=== PATIENT | male | born 1965 | race Caucasian/White ===

== ENCOUNTER 2018-01-13 09:28 | Inpatient (IN) | payer OTHER ==
[2018-01-13 10:32] VITALS: BMI 30.4
--- NOTE | 2018-01-13 13:57 | HP ---
COWS - Scale Resting Pulse: 1= [place] 81-100 Sweatin=Flushed/Facial Moisture Restless Observation: 3= Extraneous Movement Pupil Size: 2= Moderately Dilated Bone or Joint Aches: 2= Severe Diffuse Aches Runny Nose/ Eye Tearin= Runny Nose/Eyes GI Upset > 30mins: 3= Vomiting/Diarrhea Tremor Observation: 2= Slight Tremor Visible Yawning Observation: 2= >3x During Session Anxiety or Irritability: 2=Irritable/Anxious Goose Flesh Skin: 0=Smooth Skin COWS Score: 21 CIWA Score - CIWA Score Nausea/Vomitin Muscle Tremors: 3 Anxiety: 3 Agitation: 3 Paroxysmal Sweats: 2 Orientation: 0-Oriented Tacttile Disturbances: 2-Mild Itch/Numbness/Burn Auditory Disturbances: 2-Mild Harshness/Frighten Visual Disturbances: 2-Mild Sensitivity Headache: 2-Mild CIWA-Ar Total Score: 22 Admission ROS BHS - HPI Chief Complaint: I NEED HELP TO STOP USING HEROIN,ALCOHOL AND COCAINE Allergies/Adverse Reactions: Allergies Allergy/AdvReac Type Severity Reaction Status Date / Time No Known Allergies Allergy Verified 01/13/18 10:48 History of Present Illness: THIS 52 YEARS OLD MALE WITH HEROIN,ALCOHOL AND COCAINE DEPENDENCE,SEEKING DETOX, LAST TREATMENT REHAB 08/20/17 TO 09/18/17 REHAB [facility] IN THE PAST ANXIETY,DEPRESSION,INSOMNIA, LONGEST PERIOD OF SOBRIETY 7 YEARS Exam Limitations: No Limitations - Ebola screening Have you traveled outside of the country in the last 21 days: No Have you had contact with anyone from an Ebola affected area: No Have you been sick,other than usual withdrawal symptoms: No Do you have a fever: No - Review of Systems Constitutional: Chills, Loss of Appetite, Malaise, Night Sweats, Changes in sleep, Weakness EENT: reports: Tearing, Nose Congestion Respiratory: reports: No Symptoms reported Cardiac: reports: No Symptoms Reported GI: reports: Diarrhea, Nausea, Vomiting, Abdominal cramping : reports: No Symptoms Reported Musculoskeletal: reports: Back Pain, Muscle Pain Integumentary: reports: Dryness Neuro: reports: Headache, Tremors Endocrine: reports: No Symptoms Reported Hematology: reports: No Symptoms Reported Psychiatric: reports: No Sypmtoms Reported, Judgement Intact, Mood/Affect Appropiate, Orientated x3, Anxious (INSOMNIA,ANXIETY,DEPRESSION), Depressed Patient History - Patient Medical History Hx Anemia: No Hx Asthma: No Hx Chronic Obstructive Pulmonary Disease (COPD): No Hx Cancer: No Hx Cardiac Disorders: No Hx Hypertension: No Hx Hypercholesterolemia: No Hx Pacemaker: No HX Cerebrovascular Accident: No Hx Seizures: No Hx Dementia: No Hx Diabetes: No Hx Gastrointestinal Disorders: No Hx Liver Disease: No Hx Genitourinary Disorders: No Hx Sexually Transmitted Disorders: No Hx Renal Disease (ESRD): No Hx Thyroid Disease: No Hx Human Immunodeficiency Virus (HIV): No (LAST HIV TEST NEGATIVE 04/27) Hx Hepatitis C: No Hx Depression: Yes (ANXIETY,INSOMNIA) Hx Suicide Attempt: No Hx Bipolar Disorder: No Hx Schizophrenia: No Other Medical History: NO SUICIDAL,NO HOMICIDAL - Patient Surgical History Past Surgical History: No Hx Neurologic Surgery: No Hx Cataract Extraction: No Hx Cardiac Surgery: No Hx Lung Surgery: No Hx Breast Surgery: No Hx Breast Biopsy: No Hx Abdominal Surgery: No Hx Appendectomy: No Hx Cholecystectomy: No Hx Genitourinary Surgery: No Hx Section: No Hx Orthopedic Surgery: No Anesthesia Reaction: No - PPD History Previous Implant?: Yes Documented Results: Negative w/proof Implanted On Prior [facility] Admission?: No Date: 08/22/17 Results: 0.0 PPD to be Administered?: No - Smoking Cessation Smoking history: Current every day smoker Have you smoked in the past 12 months: Yes Aproximately how many cigarettes per day: 20 Cigars Per Day: 0 Hx Chewing Tobacco Use: No Initiated information on smoking cessation: Yes 'Breaking Loose' booklet given: 01/13/18 - Substance & Tx. History Hx Alcohol Use: Yes Hx Substance Use: Yes Substance Use Type: Alcohol, Cocaine, Heroin - Substances Abused Heroin Route: Inhalation Frequency: Daily Amount used: 15-20 bags Age of first use: 27 Date of Last Use: 01/12/18 Alcohol Route: Oral Frequency: Daily Amount used: 12 to 14 beer 24oz, Vodka 1/2 ping Age of first use: 10 Date of Last Use: 01/13/18 Crack Route: Smoking Frequency: 1-3 times last 30 days Amount used: $ 150 Age of first use: 28 Date of Last Use: 01/12/18 Family Disease History - Family Disease History Family Disease History: [place]: Father (PROSTATE ) Admission Physical Exam [facility] - Vital Signs Vital Signs: Vital Signs - 24 hr 01/13/18 10:26 Temperature 97.6 F Pulse Rate 87 Respiratory 20 Rate Blood Pressure 145/95 - Physical General Appearance: Yes: Moderate Distress, Alcohol on Breath, Irritable HEENTM: Yes: Normal ENT Inspection, ELYSIA, Pharynx Normal Respiratory: Yes: Lungs Clear, Normal Breath Sounds, No Respiratory Distress Neck: Yes: Within Normal Limits, Supple, Trachea in good position Breast: Yes: Within Normal Limits Cardiology: Yes: Within Normal Limits, Regular Rhythm, Regular Rate, S1, S2 Abdominal: Yes: Normal Bowel Sounds, Non Tender, Flat, Soft, Organomegaly Genitourinary: Yes: Within Normal Limits Back: Yes: Within Normal Limits, Normal Inspection, Muscle Spasm Musculoskeletal: Yes: full range of Motion, Back pain, Muscle Pain Extremities: Yes: Within Normal Limits, Normal Capillary Refill, Normal Inspection, Normal Range of Motion Neurological: Yes: Within Normal Limits, grievance manager II-XII NML intact, Fully Oriented, Alert, Motor Strength 5/5 Integumentary: Yes: Dry Lymphatic: Yes: Within Normal Limits - Diagnostic (1) Opioid dependence with withdrawal Current Visit: No Status: Acute (2) Alcohol dependence with uncomplicated withdrawal Current Visit: No Status: Acute (3) Anxiety and depression Current Visit: No Status: Acute (4) Cocaine dependence Current Visit: No Status: Acute Qualifiers: Substance use status: uncomplicated Qualified Code(s): F14.20 - Cocaine dependence, uncomplicated (5) Nicotine dependence Current Visit: No Status: Acute (6) Insomnia Current Visit: Yes Status: Acute Cleared for Admission [facility] - Detox or Rehab [facility] Level of Care: Medically Managed Detox Regimen/Protocol: Methadone/Librium [facility] Breath Alcohol Content Breath Alcohol Content: 0.196 Urine Drug Screen - Results Drug Screen Negative: No Urine Drug Screen Results: COLT-Cocaine, OPI-Opiates, OXY-Oxycodone
[2018-01-13] MEDS ORDERED: NICOTINE POLACRILEX 2 MG GUM BC PRN (14:08)
[2018-01-13] MEDS ORDERED: guaiFENesin/D-METHORPHAN HB 10 ML UNIT-DOSE CUPS PO PRN (14:08)
[2018-01-13] MEDS ORDERED: IBUPROFEN 400 MG TABLET (FP) PO PRN (14:08)
[2018-01-13] MEDS ORDERED: chlordiazePOXIDE HCL 25 MG CAPSULE PO PRN (14:08)
[2018-01-13] MEDS ORDERED: MAG HYDROX/AL HYDROX/SIMETH 30 ML UNIT-DOSE CUP PO PRN (14:08)
[2018-01-13] MEDS ORDERED: LOPERAMIDE HCL 2 MG CAPSULE PO PRN (14:08)
[2018-01-13] MEDS ORDERED: MAGNESIUM CITRATE 300 ML BOTTLE PO PRN (14:08)
[2018-01-13] MEDS ORDERED: P-EPHED 60MG/TRIPROLIDI 2.5MG TABLET PO PRN (14:08)
[2018-01-13] MEDS ORDERED: chlordiazePOXIDE HCL 25 MG CAPSULE PO ONE (14:08)
[2018-01-13] MEDS ORDERED: MAGNESIUM HYDROX 2400MG/30ML ORAL SUSPENSION 30 ML CUP PO PRN (14:08)
[2018-01-13] MEDS ORDERED: ACETAMINOPHEN 325 MG TABLET (FP) PO PRN (14:08)
[2018-01-13] MEDS ORDERED: hydrOXYzine PAMOATE 50 MG CAPSULE (FP) PO PRN (14:08)
[2018-01-13] MEDS ORDERED: MENTHOL/PHENOL 1 EACH UD MM PRN (14:08)
[2018-01-13] MEDS ORDERED: METHADONE HCL 10 MG TABLET (FOR DETOX USE ONLY) PO ONE ×2 (16:30→23:00)
[2018-01-13] MEDS: chlordiazePOXIDE HCL 25 MG CAPSULE PO SCH ×2 (17:26→22:15)
[2018-01-13] MEDS: NICOTINE 21 MG/24 HOURS TOPICAL PATCH TD SCH (17:28)
[2018-01-13] MEDS: THIAMINE HCL 100 MG TABLET (FP) PO SCH (22:15)
[2018-01-13 22:46] LABS: URINE APPEARANCE SLCLOUDY; URINE BILIRUBIN NEGATIVE (NEGATIVE); URINE BLOOD NEGATIVE (NEGATIVE); URINE COLOR YELLOW; URINE GLUCOSE (UA) NEGATIVE (NEGATIVE); URINE KETONE NEGATIVE (NEGATIVE); URINE LEUK ESTERASE NEGATIVE (NEGATIVE); URINE NITRITE NEGATIVE (NEGATIVE); URINE PROTEIN NEGATIVE (NEGATIVE)
[2018-01-14] MEDS: chlordiazePOXIDE HCL 25 MG CAPSULE PO SCH ×4 (05:22→22:13)
--- NOTE | 2018-01-14 08:59 | PN ---
S CIWA - CIWA Score Nausea/Vomitin Muscle Tremors: 3 Anxiety: 3 Agitation: 2 Paroxysmal Sweats: 1-Minimal Palms Moist Orientation: 0-Oriented Tacttile Disturbances: 1-Very Mild Itch/Numbness Auditory Disturbances: 1-Very Mild Visual Disturbances: 0-None Headache: 2-Mild CIWA-Ar Total Score: 16 BHS COWS - Scale Resting Pulse: 0= [place] 80 or Below Sweatin= Chills/Flushing Restless Observation: 3= Extraneous Movement Pupil Size: 1= Pupils >than Normal Bone or Joint Aches: 2= Severe Diffuse Aches Runny Nose/ Eye Tearin= Nasal Congestion GI Upset > 30mins: 3= Vomiting/Diarrhea Tremor Observation of Outstretched Hands: 2= Slight Tremor Visible Yawning Observation: 1= 1-2x During Session Anxiety or Irritability: 2=Irritable/Anxious Goose Flesh Skin: 0=Smooth Skin COWS Score: 16 BHS Progress Note (SOAP) Subjective: ALERT,IRRITABLE,ANXIOUS,INTERRUPTED SLEEP,TREMOR,PAIN IN THE BODY AND BACK Objective: 01/14/18 08:57 Vital Signs Temperature 97.7 F 01/14/18 06:00 Pulse Rate 61 01/14/18 06:00 Respiratory Rate 18 01/14/18 06:00 Blood Pressure 144/77 01/14/18 06:00 O2 Sat by Pulse Oximetry (%) 01/14/18 08:57 EKG ;LOW VOLTAGE,SINUS RHYTHM NO CHEST PAIN,NO SOB,NO DIZZINESS Laboratory Last Values Urine Color Yellow 01/13/18 Unknown Urine Appearance Slcloudy 01/13/18 Unknown Urine pH 5.0 (5.0-8.0) 01/13/18 Unknown Ur Specific [place] 1.025 (1.001-1.035) 01/13/18 Unknown Urine Protein Negative (NEGATIVE) 01/13/18 Unknown Urine Glucose (UA) Negative (NEGATIVE) 01/13/18 Unknown Urine Ketones Negative (NEGATIVE) 01/13/18 Unknown Urine Blood Negative (NEGATIVE) 01/13/18 Unknown Urine Nitrite Negative (NEGATIVE) 01/13/18 Unknown Urine Bilirubin Negative (NEGATIVE) 01/13/18 Unknown Urine Urobilinogen 2.0 mg/dL (0.2-1.0) 01/13/18 Unknown Ur Leukocyte Esterase Negative (NEGATIVE) 01/13/18 Unknown LABS PENDING Assessment: 01/14/18 08:59 WITHDRAWAL SYMPTOM Plan: CONTINUE DETOX
[2018-01-14] MEDS ORDERED: METHADONE HCL 10 MG TABLET (FOR DETOX USE ONLY) PO SCH (10:00)
[2018-01-14 10:17] LABS: HEMATOCRIT 41.5 % (35.4-49); HEMOGLOBIN 13.9 GM/dL (11.7-16.9); MCH 32.1 pg (25.7-33.7); MCHC 33.5 g/dl (32.0-35.9); MEAN CELL VOLUME 95.7 fl (80-96); MEAN PLT VOLUME 9.7 fl (7.5-11.1); PLATELET COUNT 183 K/MM3 (134-434); RBC 4.33 M/mm3 (4.00-5.60); RDW 14.1 % (11.9-15.9); WHITE BLOOD COUNT 7.4 K/mm3 (4.0-10.0)
[2018-01-14 10:25] LABS: CHLORIDE 103 mmol/L (98-107); POTASSIUM 3.4 mmol/L (3.5-5.1); SODIUM 141 mmol/L (136-145)
[2018-01-14] MEDS: PRENATAL VITAMINS W/ FOLIC ACID TABLET (FP) PO SCH (10:27)
[2018-01-14] MEDS: VENLAFAXINE HCL 150 MG E.R. CAPSULE PO SCH (10:29)
[2018-01-14] MEDS: NICOTINE 21 MG/24 HOURS TOPICAL PATCH TD SCH (10:31)
[2018-01-14 10:39] LABS: ALK PHOS 86 U/L (45-117); ANION GAP 9 (8-16); BILIRUBIN,TOTAL 0.5 mg/dL (0.2-1.0); BLOOD UREA NITROGEN 10 mg/dL (7-18); CALCIUM 8.1 mg/dL (8.5-10.1); CO2 29 mmol/L (21-32); GLUCOSE,RANDOM 95 mg/dL (74-106); SGOT/AST 66 U/L (15-37); SGPT/ALT 43 U/L (12-78); TOT PROT 7.6 g/dl (6.4-8.2)
--- NOTE | 2018-01-14 11:08 | CONSULT ---
[facility] Psychiatric Consult - Data Date of interview: 01/14/18 Admission source: [facility] Identifying data: Pt. is a 52 year old single male, father of three, unemployed , and currently living in a [place] [facility]. This is one of multiple admissions for patient. Pt. admitted to for alcohol, cocaine and heroin dependence. Substance Abuse History: Following information confirmed with Mr. Fink : - Smoking Cessation. Smoking history: Current every day smoker. Have you smoked in the past 12 months: Yes. Aproximately how many cigarettes per day: 20. Cigars Per Day: 0. Hx Chewing Tobacco Use: No. Initiated information on smoking cessation: Yes. 'Breaking Loose' booklet given: 01/13/18. - Substance & Tx. History. Hx Alcohol Use: Yes. Hx Substance Use: Yes. Substance Use Type : Alcohol, Cocaine, Heroin. - Substances Abused. Heroin. Route: Inhalation. Frequency: Daily. Amount used: 15-20 bags. Age of first use: 27. Date of Last Use: 01/12/18. Alcohol. Route: Oral. Frequency: Daily. Amount used: 12 to 14 beer 24oz, Vodka 1/2 ping. Age of first use: 10. Date of Last Use: 01/13/18. Crack. Route: Smoking. Frequency: 1-3 times last 30 days. Amount used: $ 150. Age of first use: 28. Date of Last Use: 01/12/18 Medical History: Denies. Psychiatric History: Pt. denies h/o psychiatric hospitalizations. Reports h/o outpatient psychiatric care at [facility] two years ago. Currently, patient receives his effexor 150mg ER from his PCP. States he was diagnosed with anxiety, panic attacks, and depression. Pt. denies h/o suicide attempt. Pt. denies suicidal and homicidal ideation. Physical/Sexual Abuse/Trauma History: Denies. Mental Status Exam - Mental Status Exam Alert and Oriented to: Time, Place, Person Cognitive Function: Good Patient Appearance: Unkempt Mood: Withdrawn Affect: Mood Congruent Patient Behavior: Cooperative Speech Pattern: Delayed Voice Loudness: Normal Thought Process: Goal Oriented Thought Disorder: Not Present Hallucinations: Denies Suicidal Ideation: Denies Homicidal Ideation: Denies Insight/Judgement: Fair, Poor Sleep: Fair Appetite: Fair Muscle strength/Tone: Normal Gait/Station: Normal Psychiatric Findings - Problem List ([place] 1, 2,3) (1) Alcohol dependence with uncomplicated withdrawal Current Visit: Yes Status: Acute (2) Cocaine dependence Current Visit: Yes Status: Acute Qualifiers: Substance use status: uncomplicated Qualified Code(s): F14.20 - Cocaine dependence, uncomplicated (3) Opioid dependence Current Visit: Yes Status: Acute (4) Opioid dependence with withdrawal Current Visit: Yes Status: Acute (5) MDD (major depressive disorder) Current Visit: Yes Status: Chronic Comment: History. - Initial Treatment Plan Initial Treatment Plan: Psychoeducation provided. Detoxification in progress. Effexor 150mg ER PO daily ordered. Benefits and side effects discussed. Verbal consent given. Will continue to monitor patient.
--- NOTE | 2018-01-14 12:05 | EKG ---
Test Reason : Blood Pressure : / mmHG Vent. Rate : 073 BPM Atrial Rate : 073 BPM P-R Int : 134 ms QRS Dur : 078 ms QT Int : 396 ms P-R-T Axes : 015 013 053 degrees QTc Int : 436 ms SINUS RHYTHM WITH PREMATURE ATRIAL COMPLEXES NONSPECIFIC T WAVE ABNORMALITY ABNORMAL ECG WHEN COMPARED WITH ECG OF 20-AUG-2017 18:34, PREMATURE ATRIAL COMPLEXES ARE NOW PRESENT Confirmed by MD Baudilio, Gab ([id number]) on 01/14/2018 12:05:23 PM Referred By: Confirmed By:Gab Astudillo MD
[2018-01-14] MEDS: THIAMINE HCL 100 MG TABLET (FP) PO SCH (22:13)
[2018-01-15] MEDS: chlordiazePOXIDE HCL 25 MG CAPSULE PO SCH ×2 (05:44→10:11)
--- NOTE | 2018-01-15 09:16 | PN ---
S CIWA - CIWA Score Nausea/Vomitin Muscle Tremors: 3 Anxiety: 3 Agitation: 3 Paroxysmal Sweats: 1-Minimal Palms Moist Orientation: 0-Oriented Tacttile Disturbances: 1-Very Mild Itch/Numbness Auditory Disturbances: 1-Very Mild Visual Disturbances: 0-None Headache: 2-Mild CIWA-Ar Total Score: 17 BHS COWS - Scale Resting Pulse: 0= [place] 80 or Below Sweatin= Chills/Flushing Restless Observation: 3= Extraneous Movement Pupil Size: 1= Pupils >than Normal Bone or Joint Aches: 2= Severe Diffuse Aches Runny Nose/ Eye Tearin= Runny Nose/Eyes GI Upset > 30mins: 2= Nausea/Diarrhea Tremor Observation of Outstretched Hands: 2= Slight Tremor Visible Yawning Observation: 1= 1-2x During Session Anxiety or Irritability: 2=Irritable/Anxious Goose Flesh Skin: 0=Smooth Skin COWS Score: 16 S Progress Note (SOAP) Subjective: ALERT,IRRITABLE,ANXIOUS,INTERRUPTED SLEEP,TREMOR,PAIN IN THE BODY AND BACK Objective: 01/15/18 09:14 Vital Signs Temperature 98.1 F 01/15/18 06:18 Pulse Rate 58 L 01/15/18 06:18 Respiratory Rate 18 01/15/18 06:18 Blood Pressure 145/87 01/15/18 06:18 O2 Sat by Pulse Oximetry (%) Laboratory Last Values WBC 7.4 K/mm3 (4.0-10.0) 01/14/18 05:45 RBC 4.33 M/mm3 (4.00-5.60) 01/14/18 05:45 Hgb 13.9 GM/dL (11.7-16.9) 01/14/18 05:45 Hct 41.5 % (35.4-49) 01/14/18 05:45 MCV 95.7 fl (80-96) 01/14/18 05:45 MCH 32.1 pg (25.7-33.7) 01/14/18 05:45 MCHC 33.5 g/dl (32.0-35.9) 01/14/18 05:45 RDW 14.1 % (11.9-15.9) 01/14/18 05:45 Plt Count 183 K/MM3 (134-434) 01/14/18 05:45 MPV 9.7 fl (7.5-11.1) 01/14/18 05:45 Sodium 141 mmol/L (136-145) 01/14/18 05:45 Potassium 3.4 mmol/L (3.5-5.1) L 01/14/18 05:45 Chloride 103 mmol/L (98-107) 01/14/18 05:45 Carbon Dioxide 29 mmol/L (21-32) 01/14/18 05:45 Anion Gap 9 (8-16) 01/14/18 05:45 BUN 10 mg/dL (7-18) D 01/14/18 05:45 Creatinine 1.0 mg/dL (0.7-1.3) 01/14/18 05:45 Creat Clearance w eGFR > 60 (>60) 01/14/18 05:45 Random Glucose 95 mg/dL (74-106) 01/14/18 05:45 Calcium 8.1 mg/dL (8.5-10.1) L 01/14/18 05:45 Total Bilirubin 0.5 mg/dL (0.2-1.0) D 01/14/18 05:45 AST 66 U/L (15-37) H D 01/14/18 05:45 ALT 43 U/L (12-78) D 01/14/18 05:45 Alkaline Phosphatase 86 U/L (45-117) 01/14/18 05:45 Total Protein 7.6 g/dl (6.4-8.2) 01/14/18 05:45 Albumin 4.0 g/dl (3.4-5.0) 01/14/18 05:45 Urine Color Yellow 01/13/18 Unknown Urine Appearance Slcloudy 01/13/18 Unknown Urine pH 5.0 (5.0-8.0) 01/13/18 Unknown Ur Specific [place] 1.025 (1.001-1.035) 01/13/18 Unknown Urine Protein Negative (NEGATIVE) 01/13/18 Unknown Urine Glucose (UA) Negative (NEGATIVE) 01/13/18 Unknown Urine Ketones Negative (NEGATIVE) 01/13/18 Unknown Urine Blood Negative (NEGATIVE) 01/13/18 Unknown Urine Nitrite Negative (NEGATIVE) 01/13/18 Unknown Urine Bilirubin Negative (NEGATIVE) 01/13/18 Unknown Urine Urobilinogen 2.0 mg/dL (0.2-1.0) 01/13/18 Unknown Ur Leukocyte Esterase Negative (NEGATIVE) 01/13/18 Unknown RPR Titer Nonreactive (NONREACTIVE) 01/14/18 05:45 Assessment: 01/15/18 09:15 WITHDRAWAL SYMPTOM,K REPLACEMENT OF HYPOKALEMIA K IS 3.4 Plan: CONTINUE DETOX
[2018-01-15] MEDS: POTASSIUM CHLORIDE TABS 20 MEQ TABLET.ER (FP) PO SCH (10:11)
[2018-01-15] MEDS: VENLAFAXINE HCL 150 MG E.R. CAPSULE PO SCH (10:11)
[2018-01-15] MEDS: METHADONE HCL 5 MG TABLET (FOR DETOX USE ONLY) PO SCH (10:11)
[2018-01-15] MEDS: PRENATAL VITAMINS W/ FOLIC ACID TABLET (FP) PO SCH (10:11)
[2018-01-15] MEDS: NICOTINE 21 MG/24 HOURS TOPICAL PATCH TD SCH (10:12)
--- NOTE | 2018-01-15 10:22 | EKG ---
Test Reason : Blood Pressure : / mmHG Vent. Rate : 054 BPM Atrial Rate : 054 BPM P-R Int : 138 ms QRS Dur : 078 ms QT Int : 454 ms P-R-T Axes : 016 027 052 degrees QTc Int : 430 ms SINUS BRADYCARDIA NONSPECIFIC T WAVE ABNORMALITY ABNORMAL ECG WHEN COMPARED WITH ECG OF 13-JAN-2018 17:17, PREMATURE ATRIAL COMPLEXES ARE NO LONGER PRESENT Confirmed by EVELIA ACKERMAN, NATHAN ([id number]) on 01/15/2018 10:22:37 AM Referred By: Confirmed By:NATHAN ALTAMIRANO MD
[2018-01-15] MEDS: chlordiazePOXIDE 5 MG CAPSULE PO SCH ×2 (17:38→22:13)
[2018-01-15] MEDS ORDERED: cloNIDine HCL 0.1 MG TABLET PO ONE (18:00)
[2018-01-15] MEDS: THIAMINE HCL 100 MG TABLET (FP) PO SCH (22:14)
[2018-01-16] MEDS: chlordiazePOXIDE 5 MG CAPSULE PO SCH ×2 (05:33→10:05)
[2018-01-16] MEDS: PRENATAL VITAMINS W/ FOLIC ACID TABLET (FP) PO SCH (10:04)
[2018-01-16] MEDS: VENLAFAXINE HCL 150 MG E.R. CAPSULE PO SCH (10:05)
[2018-01-16] MEDS: POTASSIUM CHLORIDE TABS 20 MEQ TABLET.ER (FP) PO SCH (10:05)
[2018-01-16] MEDS: METHADONE HCL 5 MG TABLET (FOR DETOX USE ONLY) PO SCH (10:05)
[2018-01-16] MEDS: NICOTINE 21 MG/24 HOURS TOPICAL PATCH TD SCH (10:05)
--- NOTE | 2018-01-16 11:04 | PN ---
BHS Progress Note (SOAP) Subjective: ALERT,IRRITABLE,ANXIOUS,INTERRUPTED SLEEP,PAIN IN THE BODY Objective: 01/16/18 11:03 Vital Signs Temperature 97.5 F L 01/16/18 06:22 Pulse Rate 52 L 01/16/18 06:22 Respiratory Rate 18 01/16/18 06:22 Blood Pressure 141/96 01/16/18 06:22 O2 Sat by Pulse Oximetry (%) Assessment: 01/16/18 11:03 WITHDRAWAL SYMPTOM Plan: CONTINUE DETOX
[2018-01-16] MEDS: chlordiazePOXIDE HCL 10 MG CAPSULE PO SCH ×2 (17:19→22:45)
[2018-01-16] MEDS: THIAMINE HCL 100 MG TABLET (FP) PO SCH (22:45)
[2018-01-17] MEDS: chlordiazePOXIDE HCL 10 MG CAPSULE PO SCH ×2 (05:59→10:51)
[2018-01-17] MEDS ORDERED: METHADONE HCL 10 MG TABLET (FOR DETOX USE ONLY) PO SCH (10:00)
--- NOTE | 2018-01-17 10:24 | PN ---
S Progress Note (SOAP) Subjective: ALERT,IRRITABLE,INTERRUPTED SLEEP Objective: 01/17/18 10:23 Vital Signs Temperature 97.3 F L 01/17/18 09:36 Pulse Rate 55 L 01/17/18 09:36 Respiratory Rate 20 01/17/18 09:36 Blood Pressure 151/88 01/17/18 09:36 O2 Sat by Pulse Oximetry (%) Assessment: 01/17/18 10:23 WITHDRAWAL SYMPTOM Plan: CONTINUE DETOX,DISCHARGE IN AM
[2018-01-17] MEDS: PRENATAL VITAMINS W/ FOLIC ACID TABLET (FP) PO SCH (10:51)
[2018-01-17] MEDS: VENLAFAXINE HCL 150 MG E.R. CAPSULE PO SCH (10:51)
[2018-01-17] MEDS: POTASSIUM CHLORIDE TABS 20 MEQ TABLET.ER (FP) PO SCH (10:51)
[2018-01-17] MEDS: NICOTINE 21 MG/24 HOURS TOPICAL PATCH TD SCH (10:51)
[2018-01-17] MEDS: THIAMINE HCL 100 MG TABLET (FP) PO SCH (22:12)
[2018-01-18] MEDS ORDERED: METHADONE HCL 5 MG TABLET (FOR DETOX USE ONLY) PO SCH (06:00)
[2018-01-18] MEDS: PRENATAL VITAMINS W/ FOLIC ACID TABLET (FP) PO SCH (10:38)
[2018-01-18] MEDS: NICOTINE 21 MG/24 HOURS TOPICAL PATCH TD SCH (10:38)
[2018-01-18] MEDS: POTASSIUM CHLORIDE TABS 20 MEQ TABLET.ER (FP) PO SCH (10:38)
[2018-01-18] MEDS: VENLAFAXINE HCL 150 MG E.R. CAPSULE PO SCH (10:38)
[2018-01-18 11:20] VITALS: BP 119/73; PULSE 60; TEMP 97.7
--- NOTE | 2018-01-18 14:52 | DS ---
[facility] Detox Discharge Summary Admission Date: 01/13/18 Discharge Date: 01/18/18 - History Pertinent Past History: hypokalemia Anxiety depression - Physical Exam Results Vital Signs: Vital Signs Temperature 97.7 F 01/18/18 10:00 Pulse Rate 60 01/18/18 10:00 Respiratory Rate 18 01/18/18 10:00 Blood Pressure 119/73 01/18/18 10:00 O2 Sat by Pulse Oximetry (%) Pertinent Admission Physical Exam Findings: withdrawal sx - Treatment Hospital Course: Detox Protocol Followed, Detoxed Safely, Responded well, Discharged Condition Good Patient has Accepted a Rehab Referral to: O/P aftercare as per counselor's note - Medication Discharge Medications: Ambulatory Orders Venlafaxine HCl ER [Effexor Xr -] 150 mg PO DAILY #30 mg 09/17/17 - Diagnosis (1) Opioid dependence, uncomplicated Status: Acute (2) Alcohol dependence with uncomplicated withdrawal Status: Acute (3) Cocaine dependence Status: Acute Qualifiers: Substance use status: uncomplicated Qualified Code(s): F14.20 - Cocaine dependence, uncomplicated (4) Nicotine dependence Status: Acute (5) Opioid dependence with withdrawal Status: Acute - AMA Did Patient Leave Against Medical Advice: No
== END 2018-01-18 12:15 | disposition home or self-care (01) | DRG 773 ==
LOC: YASAS 09:28 → Y6N 15:46
PROVIDERS: ADMIT Internal Medicine; ATTEND Internal Medicine
PROC: HZ2ZZZZ Detoxification Services for Substance Abuse Treatment (ICD-10-PCS; principal; 2018-01-13)
DX: F11.23 Opioid dependence with withdrawal (principal); F10.230 Alcohol dependence with withdrawal, uncomplicated; F14.20 Cocaine dependence, uncomplicated; F17.210 Nicotine dependence, cigarettes, uncomplicated; F41.8 Other specified anxiety disorders; F33.9 Major depressive disorder, recurrent, unspecified; G47.00 Insomnia, unspecified; E87.6 Hypokalemia
CPT/HCPCS: 36415; 80053; 81003; 85027; 86593; 93005; 93010; J0735

== ENCOUNTER 2018-04-12 12:28 | Inpatient (IN) | payer OTHER ==
[2018-04-12 16:07] VITALS: BMI 29.2
--- NOTE | 2018-04-12 16:22 | HP ---
COWS - Scale Resting Pulse: 0= [place] 80 or Below Sweatin= Chills/Flushing Restless Observation: 1= Difficult to Sit Still Pupil Size: 0= Normal to Room Light Bone or Joint Aches: 1= Mild Discomfort Runny Nose/ Eye Tearin= Runny Nose/Eyes GI Upset > 30mins: 2= Nausea/Diarrhea Tremor Observation: 2= Slight Tremor Visible Yawning Observation: 1= 1-2x During Session Anxiety or Irritability: 2=Irritable/Anxious Goose Flesh Skin: 0=Smooth Skin COWS Score: 12 CIWA Score - CIWA Score Nausea/Vomitin Muscle Tremors: 2 Anxiety: 3 Agitation: 3 Paroxysmal Sweats: 2 Orientation: 0-Oriented Tacttile Disturbances: 1-Very Mild Itch/Numbness Auditory Disturbances: 0-None Visual Disturbances: 0-None Headache: 0-None Present CIWA-Ar Total Score: 13 Admission ROS [facility] - HPI Allergies/Adverse Reactions: Allergies Allergy/AdvReac Type Severity Reaction Status Date / Time No Known Allergies Allergy Verified 01/13/18 10:48 History of Present Illness: 52 yo male with of heroin, nicotine, alcohol dependence and occasional crack / cocaine use, with last episode yesterday. Hx of depression, anxiety with panic attacks. Denies suicidal / homicidal ideation or suicide attempts. Utox positive for benzos, denies any recent ED, hospitalizations or inpatient detox. Reports tried xanax about a week ago once, but does not use xanax on the regular basis. Last detox at [facility] 01/13/18 -01/18/18. Longest period of sobriety 7 years. Exam Limitations: No Limitations - Ebola screening Have you traveled outside of the country in the last 21 days: No (N) Have you had contact with anyone from an Ebola affected area: No Have you been sick,other than usual withdrawal symptoms: No Do you have a fever: No - Review of Systems Constitutional: Chills, Loss of Appetite, Weakness EENT: reports: Nose Congestion Respiratory: reports: No Symptoms reported Cardiac: reports: No Symptoms Reported GI: reports: Constipated (last BM yesterday), Nausea, Poor Appetite, Poor Fluid Intake : reports: No Symptoms Reported Musculoskeletal: reports: Joint Pain Integumentary: reports: No Symptoms Reported Neuro: reports: Weakness Endocrine: reports: Increased Thirst Hematology: reports: No Symptoms Reported Psychiatric: reports: Orientated x3, Depressed Other Systems: Reviewed and Negative Patient History - Patient Medical History Hx Anemia: No Hx Asthma: No Hx Chronic Obstructive Pulmonary Disease (COPD): No Hx Cancer: No Hx Cardiac Disorders: No Hx Congestive Heart Failure: No Hx Hypertension: No Hx Hypercholesterolemia: No Hx Pacemaker: No HX Cerebrovascular Accident: No Hx Seizures: No Hx Dementia: No Hx Diabetes: No Hx Gastrointestinal Disorders: No Hx Liver Disease: No Hx Genitourinary Disorders: No Hx Sexually Transmitted Disorders: No Hx Renal Disease (ESRD): No Hx Thyroid Disease: No Hx Human Immunodeficiency Virus (HIV): No (LAST HIV TEST NEGATIVE 04/27, declines testing today ) Hx Hepatitis C: No Hx Depression: Yes (ANXIETY,INSOMNIA) Hx Suicide Attempt: No Hx Bipolar Disorder: No Hx Schizophrenia: No - Patient Surgical History Past Surgical History: No Hx Neurologic Surgery: No Hx Cataract Extraction: No Hx Cardiac Surgery: No Hx Lung Surgery: No Hx Breast Surgery: No Hx Breast Biopsy: No Hx Abdominal Surgery: No Hx Appendectomy: No Hx Cholecystectomy: No Hx Genitourinary Surgery: No Hx Section: No Hx Orthopedic Surgery: No Anesthesia Reaction: No - PPD History Previous Implant?: Yes Documented Results: Negative w/proof Date: 08/22/17 Results: 0.0 PPD to be Administered?: No - Smoking Cessation Smoking history: Current every day smoker Have you smoked in the past 12 months: Yes Aproximately how many cigarettes per day: 20 Cigars Per Day: 0 Hx Chewing Tobacco Use: No Initiated information on smoking cessation: Yes 'Breaking Loose' booklet given: 04/12/18 - Substance & Tx. History Hx Alcohol Use: Yes Hx Substance Use: Yes Substance Use Type: Alcohol, Cocaine, Opiates Hx Substance Use Treatment: Yes ([facility] 01/13/18 -01/18/18) - Substances Abused Alcohol Frequency: Daily Amount used: 10 -12 x 24 oz beer Age of first use: 10 Date of Last Use: 04/12/18 Crack Route: Smoking Frequency: 1-3 times last 30 days Amount used: $20 Age of first use: 19 Date of Last Use: 04/11/18 Heroin Route: Inhalation Frequency: Daily Amount used: 10 bags Age of first use: 27 Date of Last Use: 06/01/18 Family Disease History - Family Disease History Family Disease History: [place]: Father (PROSTATE ) Admission Physical Exam [facility] - Vital Signs Vital Signs: Vital Signs - 24 hr 04/12/18 16:03 Temperature 96 F L Pulse Rate 53 L Respiratory 20 Rate Blood Pressure 139/82 - Physical General Appearance: Yes: Disheveled, Irritable, Sweating, Anxious HEENTM: Yes: EOMI, Hearing grossly Normal, Normal ENT Inspection, Normocephalic , Normal Voice, ELYSIA, Pharynx Normal, Tm's normal Respiratory: Yes: Chest Non-Tender, Lungs Clear, Normal Breath Sounds, No Respiratory Distress, No Accessory Muscle Use Neck: Yes: Within Normal Limits Breast: Yes: Breast Exam Deferred Cardiology: Yes: Regular Rhythm, Regular Rate Abdominal: Yes: Normal Bowel Sounds, Non Tender, Flat, Soft Genitourinary: Yes: Within Normal Limits Back: Yes: Normal Inspection Musculoskeletal: Yes: full range of Motion, Gait Steady, Pelvis Stable Extremities: Yes: Normal Capillary Refill, Normal Inspection, Normal Range of Motion, Non-Tender Neurological: Yes: confectionery cooker II-XII NML intact, Fully Oriented, Alert, Motor Strength 5/5, Depressed Affect Integumentary: Yes: Normal Color, Warm, Diaphoresis Lymphatic: Yes: Within Normal Limits - Diagnostic (1) Alcohol dependence with uncomplicated withdrawal Current Visit: Yes Status: Acute (2) Anxiety and depression Current Visit: Yes Status: Acute (3) Cocaine dependence Current Visit: Yes Status: Acute Qualifiers: Substance use status: uncomplicated Qualified Code(s): F14.20 - Cocaine dependence, uncomplicated (4) Nicotine dependence Current Visit: Yes Status: Acute (5) Opioid dependence with withdrawal Current Visit: Yes Status: Acute Cleared for Admission [facility] - Detox or Rehab [facility] Level of Care: Medically Managed Detox Regimen/Protocol: Methadone/Librium [facility] Breath Alcohol Content Breath Alcohol Content: 0.083 Urine Drug Screen - Results Drug Screen Negative: No Urine Drug Screen Results: COLT-Cocaine, OPI-Opiates, BZO-Benzodiazepines
[2018-04-12] MEDS ORDERED: LOPERAMIDE HCL 2 MG CAPSULE PO PRN (16:31)
[2018-04-12] MEDS ORDERED: MAGNESIUM CITRATE 300 ML BOTTLE PO PRN (16:31)
[2018-04-12] MEDS ORDERED: MAG HYDROX/AL HYDROX/SIMETH 30 ML UNIT-DOSE CUP PO PRN (16:31)
[2018-04-12] MEDS ORDERED: guaiFENesin/D-METHORPHAN HB 10 ML UNIT-DOSE CUPS PO PRN (16:31)
[2018-04-12] MEDS ORDERED: ACETAMINOPHEN 325 MG TABLET (FP) PO PRN (16:31)
[2018-04-12] MEDS ORDERED: MAGNESIUM HYDROX 2400MG/30ML ORAL SUSPENSION 30 ML CUP PO PRN (16:31)
[2018-04-12] MEDS ORDERED: P-EPHED 60MG/TRIPROLIDI 2.5MG TABLET PO PRN (16:31)
[2018-04-12] MEDS ORDERED: MENTHOL/PHENOL 1 EACH UD MM PRN (16:31)
[2018-04-12] MEDS ORDERED: NICOTINE POLACRILEX 2 MG GUM BC PRN (16:31)
[2018-04-12] MEDS ORDERED: IBUPROFEN 400 MG TABLET (FP) PO PRN (16:31)
[2018-04-12] MEDS ORDERED: diazePAM 5 MG TABLET PO PRN (16:31)
[2018-04-12] MEDS ORDERED: hydrOXYzine PAMOATE 50 MG CAPSULE (FP) PO PRN (16:31)
[2018-04-12] MEDS ORDERED: METHADONE HCL 10 MG TABLET (FOR DETOX USE ONLY) PO ONE ×3 (16:45→23:00)
[2018-04-12] MEDS ORDERED: diazePAM 5 MG TABLET PO ONE ×2 (16:45→20:45)
[2018-04-12] MEDS ORDERED: chlordiazePOXIDE HCL 25 MG CAPSULE PO PRN (21:10)
[2018-04-12] MEDS ORDERED: diazePAM 5 MG TABLET PO SCH (22:00)
[2018-04-12] MEDS: THIAMINE HCL 100 MG TABLET (FP) PO SCH (22:39)
[2018-04-12] MEDS: chlordiazePOXIDE HCL 25 MG CAPSULE PO SCH (22:40)
[2018-04-13] MEDS: chlordiazePOXIDE HCL 25 MG CAPSULE PO SCH ×4 (05:53→22:33)
[2018-04-13] MEDS ORDERED: METHADONE HCL 10 MG TABLET (FOR DETOX USE ONLY) PO SCH (10:00)
[2018-04-13] MEDS: PRENATAL VITAMINS W/ FOLIC ACID TABLET (FP) PO SCH (10:39)
[2018-04-13] MEDS: NICOTINE 21 MG/24 HOURS TOPICAL PATCH TD SCH (10:41)
[2018-04-13] MEDS ORDERED: ONDANSETRON *ODT* 4 MG TABLET SL ONE (11:00)
[2018-04-13 11:02] LABS: HEMATOCRIT 40.9 % (35.4-49); HEMOGLOBIN 14.3 GM/dL (11.7-16.9); MCH 32.7 pg (25.7-33.7); MCHC 34.9 g/dl (32.0-35.9); MEAN CELL VOLUME 93.5 fl (80-96); MEAN PLT VOLUME 9.7 fl (7.5-11.1); PLATELET COUNT 159 K/MM3 (134-434); RBC 4.37 M/mm3 (4.00-5.60); RDW 15.1 % (11.9-15.9)
[2018-04-13 11:05] LABS: URINE APPEARANCE CLEAR; URINE BILIRUBIN NEGATIVE (<2.0 mg/dL); URINE BLOOD NEGATIVE (NEGATIVE); URINE COLOR LTYELLOW; URINE GLUCOSE (UA) NEGATIVE (NEGATIVE); URINE KETONE NEGATIVE (NEGATIVE); URINE LEUK ESTERASE NEGATIVE (NEGATIVE); URINE NITRITE NEGATIVE (NEGATIVE); URINE PROTEIN NEGATIVE (NEGATIVE)
[2018-04-13 11:29] LABS: ALBUMIN 3.5 g/dl (3.4-5.0); ANION GAP 7 (8-16); BLOOD UREA NITROGEN 14 mg/dL (7-18); CALCIUM 8.4 mg/dL (8.5-10.1); CHLORIDE 101 mmol/L (98-107); CO2 32 mmol/L (21-32); GLUCOSE,RANDOM 111 mg/dL (74-106); POTASSIUM 3.7 mmol/L (3.5-5.1); SGOT/AST 58 U/L (15-37); SGPT/ALT 55 U/L (12-78); SODIUM 140 mmol/L (136-145)
[2018-04-13 11:31] LABS: ALK PHOS 93 U/L (45-117); CREATININE 0.9 mg/dL (0.7-1.3); TOT PROT 6.9 g/dl (6.4-8.2)
--- NOTE | 2018-04-13 12:29 | CONSULT ---
[facility] Psychiatric Consult - Data Date of interview: 04/13/18 Admission source: Self-referred Identifying data: Mr Fink is a 52 years old male, father of 3 children, unemployed on SSI, homeless seeking detox treatment for alcohol, opioid and cocaine Substance Abuse History: Reports history of alcohol, heroin and cocaine use. Refer to addiction counselor's summary for futher information Medical History: Unremarkable. Smokes cigarettes 1ppd Psychiatric History: Reports first psychiatric contact in 1992 when he was admitted for 2 weeks to [facility] in [place] due to panic attacks and depression. He was treated with Imipramine and later switched to Paxil. He reports two subsequent psychiatric hospitalizations with most recent one being in 2010 in a [place] hospital. Reports currently seeing a psychiatrist at [facility](prison) and he is prescribed Effexor XR 150 mg po daily. At present, reports feeling mildly depressed and sleeping poorly Physical/Sexual Abuse/Trauma History: Denies history of physical abuse by family members as a child. Denies sexual abuse or DV relationship Additional Comment: Reports history of 3-4 previous arrests including 3 felony convictions. Denies being on parole/probation currently Mental Status Exam - Mental Status Exam Alert and Oriented to: Time, Place, Person Cognitive Function: Fair Patient Appearance: Well Groomed Mood: Depressed Affect: Appropriate Patient Behavior: Cooperative Speech Pattern: Clear Voice Loudness: Normal Thought Process: Intact, Goal Oriented Hallucinations: Denies Suicidal Ideation: Denies Homicidal Ideation: Denies Insight/Judgement: Poor Sleep: Well Appetite: Good Muscle strength/Tone: Normal Gait/Station: Normal Psychiatric Findings - Problem List ([place] 1, 2,3) (1) MDD (major depressive disorder) Current Visit: No Status: Chronic Comment: History. (2) Substance induced mood disorder Current Visit: Yes Status: Acute (3) Alcohol dependence with uncomplicated withdrawal Current Visit: Yes Status: Acute (4) Opioid dependence with withdrawal Current Visit: Yes Status: Acute (5) Cocaine dependence Current Visit: Yes Status: Acute Qualifiers: Substance use status: uncomplicated Qualified Code(s): F14.20 - Cocaine dependence, uncomplicated (6) Nicotine dependence Current Visit: Yes Status: Chronic Qualifiers: Nicotine product type: cigarettes - Initial Treatment Plan Initial Treatment Plan: 1) Continue Effexor XR 150 mg po daily. 2) Continue inpatient detoxification
--- NOTE | 2018-04-13 12:52 | PN ---
[facility] CIWA - CIWA Score Nausea/Vomitin-Mild Nausea/No Vomiting Muscle Tremors: 3 Anxiety: 2 Agitation: 2 Paroxysmal Sweats: 1-Minimal Palms Moist Orientation: 0-Oriented Tacttile Disturbances: 1-Very Mild Itch/Numbness Auditory Disturbances: 0-None Visual Disturbances: 0-None Headache: 1-Very Mild CIWA-Ar Total Score: 11 S COWS - Scale Resting Pulse: 0= [place] 80 or Below Sweatin= Chills/Flushing Restless Observation: 1= Difficult to Sit Still Pupil Size: 0= Normal to Room Light Bone or Joint Aches: 1= Mild Discomfort Runny Nose/ Eye Tearin= Nasal Congestion GI Upset > 30mins: 2= Nausea/Diarrhea Tremor Observation of Outstretched Hands: 1= Tremor [place], Not Seen Yawning Observation: 2= >3x During Session Anxiety or Irritability: 2=Irritable/Anxious Goose Flesh Skin: 0=Smooth Skin COWS Score: 11 [facility] Progress Note (SOAP) Subjective: joint pain body ache sweat tremor irritable restlessness Objective: 04/13/18 12:52 Vital Signs Temperature 98.1 F 04/13/18 09:14 Pulse Rate 49 L 04/13/18 09:14 Respiratory Rate 18 04/13/18 09:14 Blood Pressure 125/74 04/13/18 09:14 O2 Sat by Pulse Oximetry (%) Laboratory Last Values WBC 6.0 K/mm3 (4.0-10.0) 04/13/18 07:40 RBC 4.37 M/mm3 (4.00-5.60) 04/13/18 07:40 Hgb 14.3 GM/dL (11.7-16.9) 04/13/18 07:40 Hct 40.9 % (35.4-49) 04/13/18 07:40 MCV 93.5 fl (80-96) 04/13/18 07:40 MCH 32.7 pg (25.7-33.7) 04/13/18 07:40 MCHC 34.9 g/dl (32.0-35.9) 04/13/18 07:40 RDW 15.1 % (11.9-15.9) 04/13/18 07:40 Plt Count 159 K/MM3 (134-434) 04/13/18 07:40 MPV 9.7 fl (7.5-11.1) 04/13/18 07:40 Sodium 140 mmol/L (136-145) 04/13/18 07:40 Potassium 3.7 mmol/L (3.5-5.1) 04/13/18 07:40 Chloride 101 mmol/L (98-107) 04/13/18 07:40 Carbon Dioxide 32 mmol/L (21-32) 04/13/18 07:40 Anion Gap 7 (8-16) L 04/13/18 07:40 BUN 14 mg/dL (7-18) D 04/13/18 07:40 Creatinine 0.9 mg/dL (0.7-1.3) 04/13/18 07:40 Creat Clearance w eGFR > 60 (>60) 04/13/18 07:40 Random Glucose 111 mg/dL (74-106) H 04/13/18 07:40 Calcium 8.4 mg/dL (8.5-10.1) L 04/13/18 07:40 Total Bilirubin 1.0 mg/dL (0.2-1.0) D 04/13/18 07:40 AST 58 U/L (15-37) H 04/13/18 07:40 ALT 55 U/L (12-78) D 04/13/18 07:40 Alkaline Phosphatase 93 U/L (45-117) 04/13/18 07:40 Total Protein 6.9 g/dl (6.4-8.2) 04/13/18 07:40 Albumin 3.5 g/dl (3.4-5.0) 04/13/18 07:40 Urine Color Ltyellow 04/13/18 08:15 Urine Appearance Clear 04/13/18 08:15 Urine pH 6.0 (5.0-8.0) 04/13/18 08:15 Ur Specific [place] 1.010 (1.001-1.035) 04/13/18 08:15 Urine Protein Negative (NEGATIVE) 04/13/18 08:15 Urine Glucose (UA) Negative (NEGATIVE) 04/13/18 08:15 Urine Ketones Negative (NEGATIVE) 04/13/18 08:15 Urine Blood Negative (NEGATIVE) 04/13/18 08:15 Urine Nitrite Negative (NEGATIVE) 04/13/18 08:15 Urine Bilirubin Negative (<2.0 mg/dL) 04/13/18 08:15 Urine Urobilinogen 2.0 mg/dL (0.2-1.0) 04/13/18 08:15 Ur Leukocyte Esterase Negative (NEGATIVE) 04/13/18 08:15 RPR Titer Nonreactive (NONREACTIVE) 04/13/18 07:40 lab noted Assessment: 04/13/18 12:52 withdrawal sx Plan: continue detox
[2018-04-13] MEDS: VENLAFAXINE HCL 150 MG E.R. CAPSULE PO SCH (13:00)
[2018-04-13] MEDS: THIAMINE HCL 100 MG TABLET (FP) PO SCH (22:33)
[2018-04-13] MEDS: MELATONIN 5 MG TABLETS PO PRN (22:34)
--- NOTE | 2018-04-13 22:41 | EKG ---
Test Reason : Blood Pressure : / mmHG Vent. Rate : 048 BPM Atrial Rate : 048 BPM P-R Int : 140 ms QRS Dur : 084 ms QT Int : 498 ms P-R-T Axes : 021 012 -11 degrees QTc Int : 444 ms SINUS BRADYCARDIA OTHERWISE NORMAL ECG WHEN COMPARED WITH ECG OF 14-JAN-2018 11:29, NONSPECIFIC T WAVE ABNORMALITY NOW EVIDENT IN INFERIOR LEADS Confirmed by ALEX OROZCO MD ([id number]) on 04/13/2018 10:41:41 PM Referred By: Confirmed By:ALEX OROZCO MD
[2018-04-14] MEDS: chlordiazePOXIDE HCL 25 MG CAPSULE PO SCH ×3 (06:49→17:30)
[2018-04-14] MEDS ORDERED: diazePAM 5 MG TABLET PO SCH (10:00)
[2018-04-14] MEDS: NICOTINE 21 MG/24 HOURS TOPICAL PATCH TD SCH (10:32)
[2018-04-14] MEDS: VENLAFAXINE HCL 150 MG E.R. CAPSULE PO SCH (10:32)
[2018-04-14] MEDS: METHADONE HCL 5 MG TABLET (FOR DETOX USE ONLY) PO SCH (10:32)
[2018-04-14] MEDS: PRENATAL VITAMINS W/ FOLIC ACID TABLET (FP) PO SCH (10:32)
--- NOTE | 2018-04-14 12:22 | PN ---
[facility] CIWA - CIWA Score Nausea/Vomitin Muscle Tremors: 3 Anxiety: 3 Agitation: 2 Paroxysmal Sweats: 1-Minimal Palms Moist Orientation: 0-Oriented Tacttile Disturbances: 1-Very Mild Itch/Numbness Auditory Disturbances: 1-Very Mild Visual Disturbances: 0-None Headache: 2-Mild CIWA-Ar Total Score: 16 [facility] COWS - Scale Resting Pulse: 0= [place] 80 or Below Sweatin= Chills/Flushing Restless Observation: 3= Extraneous Movement Pupil Size: 1= Pupils >than Normal Bone or Joint Aches: 2= Severe Diffuse Aches Runny Nose/ Eye Tearin= Runny Nose/Eyes GI Upset > 30mins: 2= Nausea/Diarrhea Tremor Observation of Outstretched Hands: 2= Slight Tremor Visible Yawning Observation: 1= 1-2x During Session Anxiety or Irritability: 2=Irritable/Anxious Goose Flesh Skin: 0=Smooth Skin COWS Score: 16 [facility] Progress Note (SOAP) Subjective: alert,irritable,anxious,interrupted sleep,tremor,pain in the body Objective: 04/14/18 12:20 Vital Signs Temperature 97.5 F L 04/14/18 09:48 Pulse Rate 55 L 04/14/18 09:48 Respiratory Rate 20 04/14/18 09:48 Blood Pressure 130/70 04/14/18 09:48 O2 Sat by Pulse Oximetry (%) Laboratory Last Values WBC 6.0 K/mm3 (4.0-10.0) 04/13/18 07:40 RBC 4.37 M/mm3 (4.00-5.60) 04/13/18 07:40 Hgb 14.3 GM/dL (11.7-16.9) 04/13/18 07:40 Hct 40.9 % (35.4-49) 04/13/18 07:40 MCV 93.5 fl (80-96) 04/13/18 07:40 MCH 32.7 pg (25.7-33.7) 04/13/18 07:40 MCHC 34.9 g/dl (32.0-35.9) 04/13/18 07:40 RDW 15.1 % (11.9-15.9) 04/13/18 07:40 Plt Count 159 K/MM3 (134-434) 04/13/18 07:40 MPV 9.7 fl (7.5-11.1) 04/13/18 07:40 Sodium 140 mmol/L (136-145) 04/13/18 07:40 Potassium 3.7 mmol/L (3.5-5.1) 04/13/18 07:40 Chloride 101 mmol/L (98-107) 04/13/18 07:40 Carbon Dioxide 32 mmol/L (21-32) 04/13/18 07:40 Anion Gap 7 (8-16) L 04/13/18 07:40 BUN 14 mg/dL (7-18) D 04/13/18 07:40 Creatinine 0.9 mg/dL (0.7-1.3) 04/13/18 07:40 Creat Clearance w eGFR > 60 (>60) 04/13/18 07:40 Random Glucose 111 mg/dL (74-106) H 04/13/18 07:40 Calcium 8.4 mg/dL (8.5-10.1) L 04/13/18 07:40 Total Bilirubin 1.0 mg/dL (0.2-1.0) D 04/13/18 07:40 AST 58 U/L (15-37) H 04/13/18 07:40 ALT 55 U/L (12-78) D 04/13/18 07:40 Alkaline Phosphatase 93 U/L (45-117) 04/13/18 07:40 Total Protein 6.9 g/dl (6.4-8.2) 04/13/18 07:40 Albumin 3.5 g/dl (3.4-5.0) 04/13/18 07:40 Urine Color Ltyellow 04/13/18 08:15 Urine Appearance Clear 04/13/18 08:15 Urine pH 6.0 (5.0-8.0) 04/13/18 08:15 Ur Specific [place] 1.010 (1.001-1.035) 04/13/18 08:15 Urine Protein Negative (NEGATIVE) 04/13/18 08:15 Urine Glucose (UA) Negative (NEGATIVE) 04/13/18 08:15 Urine Ketones Negative (NEGATIVE) 04/13/18 08:15 Urine Blood Negative (NEGATIVE) 04/13/18 08:15 Urine Nitrite Negative (NEGATIVE) 04/13/18 08:15 Urine Bilirubin Negative (<2.0 mg/dL) 04/13/18 08:15 Urine Urobilinogen 2.0 mg/dL (0.2-1.0) 04/13/18 08:15 Ur Leukocyte Esterase Negative (NEGATIVE) 04/13/18 08:15 RPR Titer Nonreactive (NONREACTIVE) 04/13/18 07:40 Assessment: 04/14/18 12:21 withdrawal symptom Plan: continue detox
[2018-04-14] MEDS: chlordiazePOXIDE 5 MG CAPSULE PO SCH (22:20)
[2018-04-14] MEDS: THIAMINE HCL 100 MG TABLET (FP) PO SCH (22:21)
[2018-04-14] MEDS: MELATONIN 5 MG TABLETS PO PRN (22:21)
[2018-04-15] MEDS: chlordiazePOXIDE 5 MG CAPSULE PO SCH ×3 (05:26→17:28)
[2018-04-15] MEDS: VENLAFAXINE HCL 150 MG E.R. CAPSULE PO SCH (10:51)
[2018-04-15] MEDS: PRENATAL VITAMINS W/ FOLIC ACID TABLET (FP) PO SCH (10:51)
[2018-04-15] MEDS: NICOTINE 21 MG/24 HOURS TOPICAL PATCH TD SCH (10:51)
[2018-04-15] MEDS: METHADONE HCL 5 MG TABLET (FOR DETOX USE ONLY) PO SCH (10:51)
--- NOTE | 2018-04-15 11:57 | PN ---
[facility] Progress Note (SOAP) Subjective: alert,irritable,anxious,interrupted sleep,pain in the body Objective: 04/15/18 11:55 Vital Signs Temperature 97.7 F 04/15/18 09:24 Pulse Rate 50 L 04/15/18 09:24 Respiratory Rate 18 04/15/18 09:24 Blood Pressure 122/74 04/15/18 09:24 O2 Sat by Pulse Oximetry (%) Assessment: 04/15/18 11:55 withdrawal symptom Plan: continue detox
[2018-04-15] MEDS: chlordiazePOXIDE HCL 10 MG CAPSULE PO SCH (22:17)
[2018-04-15] MEDS: THIAMINE HCL 100 MG TABLET (FP) PO SCH (22:17)
[2018-04-15] MEDS: MELATONIN 5 MG TABLETS PO PRN (22:18)
[2018-04-16] MEDS: chlordiazePOXIDE HCL 10 MG CAPSULE PO SCH ×3 (05:28→18:10)
[2018-04-16] MEDS ORDERED: METHADONE HCL 10 MG TABLET (FOR DETOX USE ONLY) PO SCH (10:00)
[2018-04-16] MEDS ORDERED: diazePAM 5 MG TABLET PO SCH (10:00)
[2018-04-16] MEDS: PRENATAL VITAMINS W/ FOLIC ACID TABLET (FP) PO SCH (10:17)
[2018-04-16] MEDS: VENLAFAXINE HCL 150 MG E.R. CAPSULE PO SCH (10:17)
[2018-04-16] MEDS: NICOTINE 21 MG/24 HOURS TOPICAL PATCH TD SCH (10:38)
--- NOTE | 2018-04-16 12:21 | PN ---
S Progress Note (SOAP) Subjective: alert,interrupted sleep Objective: 04/16/18 12:20 Vital Signs Temperature 97.2 F L 04/16/18 09:42 Pulse Rate 51 L 04/16/18 09:42 Respiratory Rate 18 04/16/18 09:42 Blood Pressure 135/71 04/16/18 09:42 O2 Sat by Pulse Oximetry (%) Assessment: 04/16/18 12:21 withdrawal symptom Plan: continue detox,discharge in am
[2018-04-16] MEDS: THIAMINE HCL 100 MG TABLET (FP) PO SCH (23:00)
[2018-04-16] MEDS: MELATONIN 5 MG TABLETS PO PRN (23:00)
[2018-04-17] MEDS ORDERED: METHADONE HCL 5 MG TABLET (FOR DETOX USE ONLY) PO SCH (06:00)
[2018-04-17 07:24] VITALS: TEMP 97.3
--- NOTE | 2018-04-17 08:17 | PN ---
S Progress Note (SOAP) Subjective: alert,no complaint Objective: 04/17/18 08:16 Vital Signs Temperature 97.3 F L 04/17/18 07:22 Pulse Rate 50 L 04/17/18 07:22 Respiratory Rate 18 04/17/18 07:22 Blood Pressure 121/74 04/17/18 07:22 O2 Sat by Pulse Oximetry (%) Assessment: 04/17/18 08:16 detox completed,no withdrawal symptom Plan: discharge today,follow up with after care program as arrangement
--- NOTE | 2018-04-17 08:21 | DS ---
[facility] Detox Discharge Summary Admission Date: 04/12/18 Discharge Date: 04/17/18 - History Present History: Alcohol Dependence, Opioid Dependence Additional Comments: follow up with after care program as arrangement Pertinent Past History: nicotine dependence depression - Physical Exam Results Vital Signs: Vital Signs Temperature 97.3 F L 04/17/18 07:22 Pulse Rate 50 L 04/17/18 07:22 Respiratory Rate 18 04/17/18 07:22 Blood Pressure 121/74 04/17/18 07:22 O2 Sat by Pulse Oximetry (%) Pertinent Admission Physical Exam Findings: withdrawal signs and symptom Vital Signs Temperature 97.3 F L 04/17/18 07:22 Pulse Rate 50 L 04/17/18 07:22 Respiratory Rate 18 04/17/18 07:22 Blood Pressure 121/74 04/17/18 07:22 O2 Sat by Pulse Oximetry (%) Laboratory Last Values WBC 6.0 K/mm3 (4.0-10.0) 04/13/18 07:40 RBC 4.37 M/mm3 (4.00-5.60) 04/13/18 07:40 Hgb 14.3 GM/dL (11.7-16.9) 04/13/18 07:40 Hct 40.9 % (35.4-49) 04/13/18 07:40 MCV 93.5 fl (80-96) 04/13/18 07:40 MCH 32.7 pg (25.7-33.7) 04/13/18 07:40 MCHC 34.9 g/dl (32.0-35.9) 04/13/18 07:40 RDW 15.1 % (11.9-15.9) 04/13/18 07:40 Plt Count 159 K/MM3 (134-434) 04/13/18 07:40 MPV 9.7 fl (7.5-11.1) 04/13/18 07:40 Sodium 140 mmol/L (136-145) 04/13/18 07:40 Potassium 3.7 mmol/L (3.5-5.1) 04/13/18 07:40 Chloride 101 mmol/L (98-107) 04/13/18 07:40 Carbon Dioxide 32 mmol/L (21-32) 04/13/18 07:40 Anion Gap 7 (8-16) L 04/13/18 07:40 BUN 14 mg/dL (7-18) D 04/13/18 07:40 Creatinine 0.9 mg/dL (0.7-1.3) 04/13/18 07:40 Creat Clearance w eGFR > 60 (>60) 04/13/18 07:40 Random Glucose 111 mg/dL (74-106) H 04/13/18 07:40 Calcium 8.4 mg/dL (8.5-10.1) L 04/13/18 07:40 Total Bilirubin 1.0 mg/dL (0.2-1.0) D 04/13/18 07:40 AST 58 U/L (15-37) H 04/13/18 07:40 ALT 55 U/L (12-78) D 04/13/18 07:40 Alkaline Phosphatase 93 U/L (45-117) 04/13/18 07:40 Total Protein 6.9 g/dl (6.4-8.2) 04/13/18 07:40 Albumin 3.5 g/dl (3.4-5.0) 04/13/18 07:40 Urine Color Ltyellow 04/13/18 08:15 Urine Appearance Clear 04/13/18 08:15 Urine pH 6.0 (5.0-8.0) 04/13/18 08:15 Ur Specific [place] 1.010 (1.001-1.035) 04/13/18 08:15 Urine Protein Negative (NEGATIVE) 04/13/18 08:15 Urine Glucose (UA) Negative (NEGATIVE) 04/13/18 08:15 Urine Ketones Negative (NEGATIVE) 04/13/18 08:15 Urine Blood Negative (NEGATIVE) 04/13/18 08:15 Urine Nitrite Negative (NEGATIVE) 04/13/18 08:15 Urine Bilirubin Negative (<2.0 mg/dL) 04/13/18 08:15 Urine Urobilinogen 2.0 mg/dL (0.2-1.0) 04/13/18 08:15 Ur Leukocyte Esterase Negative (NEGATIVE) 04/13/18 08:15 RPR Titer Nonreactive (NONREACTIVE) 04/13/18 07:40 - Treatment Hospital Course: Detox Protocol Followed, Detoxed Safely, Responded well, Discharged Condition Good, Rehab Referral Accepted Patient has Accepted [facility] Ref[facility] - Medication Discharge Medications: Ambulatory Orders Venlafaxine HCl ER [Effexor Xr -] 150 mg PO DAILY #30 mg 09/17/17 - Diagnosis (1) Opioid dependence with withdrawal Current Visit: Yes Status: Acute (2) Alcohol dependence with uncomplicated withdrawal Current Visit: Yes Status: Acute (3) Substance induced mood disorder Current Visit: Yes Status: Acute (4) Nicotine dependence Current Visit: Yes Status: Chronic Qualifiers: Nicotine product type: cigarettes (5) MDD (major depressive disorder), recurrent episode Current Visit: No Status: Acute - AMA Did Patient Leave Against Medical Advice: No
[2018-04-17 09:20] VITALS: BP 112/68; PULSE 49
[2018-04-17] MEDS: PRENATAL VITAMINS W/ FOLIC ACID TABLET (FP) PO SCH (10:23)
[2018-04-17] MEDS: VENLAFAXINE HCL 150 MG E.R. CAPSULE PO SCH (10:23)
[2018-04-17] MEDS: NICOTINE 21 MG/24 HOURS TOPICAL PATCH TD SCH (10:23)
== END 2018-04-17 10:30 | disposition home or self-care (01) | DRG 773 ==
LOC: YASAS 12:28 → Y6N 19:20
PROVIDERS: ADMIT Surgery; ATTEND Surgery
PROC: HZ2ZZZZ Detoxification Services for Substance Abuse Treatment (ICD-10-PCS; principal; 2018-04-12)
DX: F11.23 Opioid dependence with withdrawal (principal); F10.230 Alcohol dependence with withdrawal, uncomplicated; F14.20 Cocaine dependence, uncomplicated; F17.210 Nicotine dependence, cigarettes, uncomplicated; F19.24 Other psychoactive substance dependence with psychoactive substance-induced mood disorder; F33.9 Major depressive disorder, recurrent, unspecified
CPT/HCPCS: 36415; 80053; 81003; 85027; 86593; 93005; 93010

== ENCOUNTER 2018-07-28 15:12 | Inpatient (IN) | payer OTHER ==
--- NOTE | 2018-07-28 21:59 | HP ---
COWS - Scale Resting Pulse: 0= [place] 80 or Below Sweatin=Flushed/Facial Moisture Restless Observation: 1= Difficult to Sit Still Pupil Size: 0= Normal to Room Light Bone or Joint Aches: 4=Acute Joint/Muscle Pain Runny Nose/ Eye Tearin= Nasal Congestion GI Upset > 30mins: 3= Vomiting/Diarrhea Tremor Observation: 2= Slight Tremor Visible Yawning Observation: 0= None Anxiety or Irritability: 2=Irritable/Anxious Goose Flesh Skin: 0=Smooth Skin COWS Score: 15 CIWA Score - CIWA Score Nausea/Vomitin-No Nausea/No Vomiting Muscle Tremors: 4-Moderate,w/Arms Extend Anxiety: 4-Mod. Anxious/Guarded Agitation: 4-Moderately Restless Paroxysmal Sweats: 3 Orientation: 0-Oriented Tacttile Disturbances: 3-Moderate Itch/Numb/Burn Auditory Disturbances: 0-None Visual Disturbances: 0-None Headache: 0-None Present CIWA-Ar Total Score: 18 Admission ROS S - HPI Chief Complaint: SEEKING DETOX FROM ALCOHOL AND HEROIN DEPENDENCE WITH C/O WITHDRAWAL SX'S Allergies/Adverse Reactions: Allergies Allergy/AdvReac Type Severity Reaction Status Date / Time No Known Allergies Allergy Verified 07/28/18 21:23 History of Present Illness: 52 Y.O. MALE WITH HX/O ALCOHOLISM/ OPIOID DEPENDENCE WITH C/O WITHDRAWAL SXS' CIWA-18/ COWS-15 ADMITTED TO DETOX. CLIENT IS KNOWN TO THIS PROGRAM. SELF REFERRED. LAST ADMISSION 04/12/2018. REPORTS LONGEST CLEAN TIME 7 YEARS. DENIES SEIZURES, DENIES PAST/PRESENT SI/HI,AVH . DOES REPORTS HX/O BLACK OUTS. DENIES LEGALS PMHX- DENIES PSYCH- DEPRESSION, ANXIETY, PANIC D/O Exam Limitations: No Limitations - Ebola screening Have you traveled outside of the country in the last 21 days: No Have you had contact with anyone from an Ebola affected area: No Have you been sick,other than usual withdrawal symptoms: No - Review of Systems Constitutional: Chills, Loss of Appetite, Malaise, Night Sweats, Changes in sleep EENT: reports: Dental Problems (MISSING TEETH), Other (ITCHY R EYE) Respiratory: reports: No Symptoms reported Cardiac: reports: No Symptoms Reported GI: reports: Diarrhea, Nausea, Poor Appetite, Poor Fluid Intake : reports: No Symptoms Reported Musculoskeletal: reports: Joint Pain Integumentary: reports: Flushing, Sweating Neuro: reports: Numbness, Tingling (FINGERS) Endocrine: reports: No Symptoms Reported Hematology: reports: No Symptoms Reported Psychiatric: reports: Anxious, Depressed Other Systems: Reviewed and Negative Patient History - Patient Medical History Hx Anemia: No Hx Asthma: No Hx Chronic Obstructive Pulmonary Disease (COPD): No Hx Cancer: No Hx Cardiac Disorders: No Hx Congestive Heart Failure: No Hx Hypertension: No Hx Hypercholesterolemia: No Hx Pacemaker: No HX Cerebrovascular Accident: No Hx Seizures: No Hx Dementia: No Hx Diabetes: No Hx Gastrointestinal Disorders: No Hx Liver Disease: No Hx Genitourinary Disorders: No Hx Sexually Transmitted Disorders: No Hx Renal Disease (ESRD): No Hx Thyroid Disease: No Hx Human Immunodeficiency Virus (HIV): No Hx Hepatitis C: No Hx Depression: Yes Hx Suicide Attempt: No Hx Bipolar Disorder: No Hx Schizophrenia: No Other Medical History: ANXIETY/PANIC D/O - Patient Surgical History Past Surgical History: No Hx Neurologic Surgery: No Hx Cataract Extraction: No Hx Cardiac Surgery: No Hx Lung Surgery: No Hx Breast Surgery: No Hx Breast Biopsy: No Hx Abdominal Surgery: No Hx Appendectomy: No Hx Cholecystectomy: No Hx Genitourinary Surgery: No Hx Section: No Hx Orthopedic Surgery: No Anesthesia Reaction: No - PPD History Previous Implant?: Yes Documented Results: Negative w/proof Implanted On Prior [facility] Admission?: Yes Date: 08/22/17 Results: 0 mm PPD to be Administered?: No - Smoking Cessation Smoking history: Current every day smoker Have you smoked in the past 12 months: Yes Aproximately how many cigarettes per day: 20 Cigars Per Day: 0 Hx Chewing Tobacco Use: No Initiated information on smoking cessation: Yes 'Breaking Loose' booklet given: 07/28/18 - Substance & Tx. History Hx Alcohol Use: Yes Hx Substance Use: Yes Substance Use Type: Alcohol, Heroin Hx Substance Use Treatment: Yes ([facility]) - Substances Abused Alcohol Route: Oral Frequency: Daily Amount used: liquor- 2 pints Age of first use: 10 Date of Last Use: 07/27/18 Heroin Route: Inhalation Frequency: Daily Amount used: 9 bags Age of first use: 10 Date of Last Use: 07/28/18 Family Disease History - Family Disease History Family Disease History: [place]: Father (PROSTATE ) Admission Physical Exam [facility] - Vital Signs Vital Signs: Vital Signs - 24 hr 07/28/18 18:11 Temperature 97 F L Pulse Rate 78 Respiratory 18 Rate Blood Pressure 158/93 - Physical General Appearance: Yes: Moderate Distress, Alcohol on Breath, Intoxicated, Tremorous, Sweating, Anxious, Other (MALODUROUS) HEENTM: Yes: EOMI, Normocephalic, Normal Voice, ELYSIA, Pharynx Normal Respiratory: Yes: Chest Non-Tender, Lungs Clear, Normal Breath Sounds, No Respiratory Distress, No Accessory Muscle Use Neck: Yes: No masses,lesions,Nodules, Supple, Trachea in good position Breast: Yes: Breast Exam Deferred Cardiology: Yes: Regular Rhythm, Regular Rate, S1, S2 Abdominal: Yes: Non Tender, Soft, Increased Bowel Sounds Genitourinary: Yes: Other (NO C/O) Back: Yes: Normal Inspection Musculoskeletal: Yes: Gait Steady Extremities: Yes: Normal Capillary Refill, Normal Range of Motion, Non-Tender, Tremors (FELT) Neurological: Yes: Alert, Motor Strength 5/5, Depressed Affect Integumentary: Yes: Warm, Other (FLUSHED) Lymphatic: Yes: Within Normal Limits - Diagnostic (1) Alcohol dependence with uncomplicated withdrawal Current Visit: Yes Status: Acute (2) Cocaine dependence Current Visit: Yes Status: Acute Qualifiers: Substance use status: uncomplicated Qualified Code(s): F14.20 - Cocaine dependence, uncomplicated (3) Opioid dependence with withdrawal Current Visit: Yes Status: Acute (4) Panic disorder with agoraphobia Current Visit: Yes Status: Chronic (5) Substance induced mood disorder Current Visit: Yes Status: Suspected (6) MDD (major depressive disorder) Current Visit: Yes Status: Chronic Comment: History. (7) Nicotine dependence Current Visit: Yes Status: Chronic Qualifiers: Nicotine product type: cigarettes Substance use status: uncomplicated Qualified Code(s): F17.210 - Nicotine dependence, cigarettes, uncomplicated (8) At risk for dehydration due to poor fluid intake Current Visit: Yes Status: Acute Cleared for Admission [facility] - Detox or Rehab [facility] Level of Care: Medically Managed Detox Regimen/Protocol: Methadone/Librium Claeared for Rehab Admission: No S Breath Alcohol Content Breath Alcohol Content: 0.180 Urine Drug Screen - Results Drug Screen Negative: No Urine Drug Screen Results: COLT-Cocaine, OPI-Opiates
[2018-07-28] MEDS ORDERED: MELATONIN 5 MG TABLETS PO PRN (22:00)
[2018-07-28] MEDS ORDERED: LOPERAMIDE HCL 2 MG CAPSULE PO PRN (22:03)
[2018-07-28] MEDS ORDERED: MAGNESIUM HYDROX 2400MG/30ML ORAL SUSPENSION 30 ML CUP PO PRN (22:03)
[2018-07-28] MEDS ORDERED: guaiFENesin/D-METHORPHAN HB 10 ML UNIT-DOSE CUPS PO PRN (22:03)
[2018-07-28] MEDS ORDERED: ACETAMINOPHEN 325 MG TABLET (FP) PO PRN (22:03)
[2018-07-28] MEDS ORDERED: IBUPROFEN 400 MG TABLET (FP) PO PRN (22:03)
[2018-07-28] MEDS ORDERED: MENTHOL/PHENOL 1 EACH UD MM PRN (22:03)
[2018-07-28] MEDS ORDERED: MAGNESIUM CITRATE 300 ML BOTTLE PO PRN (22:03)
[2018-07-28] MEDS ORDERED: P-EPHED 60MG/TRIPROLIDI 2.5MG TABLET PO PRN (22:03)
[2018-07-28] MEDS ORDERED: NICOTINE POLACRILEX 2 MG GUM BC PRN (22:03)
[2018-07-29] MEDS ORDERED: METHADONE HCL 10 MG TABLET (FOR DETOX USE ONLY) PO ONE ×3 (01:14→22:00)
[2018-07-29] MEDS: chlordiazePOXIDE HCL 25 MG CAPSULE PO PRN ×2 (01:25→15:12)
[2018-07-29] MEDS: chlordiazePOXIDE HCL 25 MG CAPSULE PO SCH ×4 (05:36→22:06)
[2018-07-29 10:25] LABS: HEMATOCRIT 41.6 % (35.4-49); MCH 32.3 pg (25.7-33.7); MCHC 33.8 g/dl (32.0-35.9); MEAN CELL VOLUME 95.8 fl (80-96); MEAN PLT VOLUME 9.8 fl (7.5-11.1); PLATELET COUNT 157 K/MM3 (134-434); RBC 4.34 M/mm3 (4.00-5.60); RDW 13.8 % (11.9-15.9); WHITE BLOOD COUNT 4.5 K/mm3 (4.0-10.0)
[2018-07-29 10:44] LABS: ALBUMIN 3.6 g/dl (3.4-5.0); ANION GAP 13 MMOL/L (8-16); BILIRUBIN,TOTAL 0.9 mg/dL (0.2-1); BLOOD UREA NITROGEN 15 mg/dL (7-18); CALCIUM 8.7 mg/dL (8.5-10.1); CHLORIDE 102 mmol/L (98-107); CO2 30 mmol/L (21-32); GLUCOSE,RANDOM 111 mg/dL (74-106); SGOT/AST 40 U/L (15-37); SGPT/ALT 28 U/L (13-61); SODIUM 145 mmol/L (136-145); TOT PROT 6.8 g/dl (6.4-8.2)
[2018-07-29 10:47] LABS: ALK PHOS 83 U/L (45-117)
[2018-07-29] MEDS: PRENATAL VITAMINS W/ FOLIC ACID TABLET (FP) PO SCH (10:47)
[2018-07-29] MEDS: NICOTINE 21 MG/24 HOURS TOPICAL PATCH TD SCH (10:48)
--- NOTE | 2018-07-29 11:04 | PN ---
S CIWA - CIWA Score Nausea/Vomitin-Mild Nausea/No Vomiting Muscle Tremors: None Anxiety: 1-Mildly Anxious Agitation: 0-Normal Activity Paroxysmal Sweats: No Perspiration Orientation: 0-Oriented Tacttile Disturbances: 0-None Auditory Disturbances: 0-None Visual Disturbances: 0-None Headache: 1-Very Mild CIWA-Ar Total Score: 3 [facility] COWS - Scale Resting Pulse: 0= [place] 80 or Below Sweatin= No chills or Flushing Restless Observation: 0= Sits Still Pupil Size: 0= Normal to Room Light Bone or Joint Aches: 1= Mild Discomfort Runny Nose/ Eye Tearin= None GI Upset > 30mins: 1= Stomach Cramp Tremor Observation of Outstretched Hands: 0= None Yawning Observation: 0= None Anxiety or Irritability: 1=Feels Anxious/Irritable Goose Flesh Skin: 0=Smooth Skin COWS Score: 3 S Progress Note (SOAP) Subjective: PATIENT PRESENTS WITH MILD ANXIETY, STOMACH CRAMPS, HEADACHE AND BODY ACHES. Objective: 07/29/18 11:02 Vital Signs Temperature 97.2 F L 07/29/18 09:29 Pulse Rate 67 07/29/18 09:29 Respiratory Rate 18 07/29/18 09:29 Blood Pressure 113/70 07/29/18 09:29 O2 Sat by Pulse Oximetry (%) Laboratory Tests 07/29/18 07/29/18 07:50 07:50 WBC 4.5 RBC 4.34 Hgb 14.0 Hct 41.6 MCV 95.8 MCH 32.3 MCHC 33.8 RDW 13.8 Plt Count 157 MPV 9.8 Sodium 145 Potassium 4.0 Chloride 102 Carbon Dioxide 30 Anion Gap 13 BUN 15 Creatinine 1.0 Creat Clearance w eGFR > 60 Random Glucose 111 H Calcium 8.7 Total Bilirubin 0.9 AST 40 H ALT 28 Alkaline Phosphatase 83 Total Protein 6.8 Albumin 3.6 SKIN AFEBRILE, WARM AND DRY ALERT AND ORIENTED CAR S1S2 RESP CTA BL GI SOFT, BS + NT Assessment: 07/29/18 11:03 WITHDRAWAL SYNDROME Plan: ENCOURAGE ORAL FLUIDS MOTRIN/APAP PRN FOR HEADACHE CONTINUE DETOX PER PROTOCOL
--- NOTE | 2018-07-29 16:45 | EKG ---
Test Reason : Blood Pressure : / mmHG Vent. Rate : 071 BPM Atrial Rate : 071 BPM P-R Int : 136 ms QRS Dur : 080 ms QT Int : 404 ms P-R-T Axes : 009 023 030 degrees QTc Int : 439 ms NORMAL SINUS RHYTHM NONSPECIFIC T WAVE ABNORMALITY ABNORMAL ECG WHEN COMPARED WITH ECG OF 12-APR-2018 19:44, VENT. RATE HAS INCREASED BY 23 BPM NONSPECIFIC T WAVE ABNORMALITY, WORSE IN LATERAL LEADS Confirmed by Sandro Coronel ([id number]) on 07/29/2018 4:45:01 PM Referred By: Confirmed By:Sandro Coronel
--- NOTE | 2018-07-29 17:59 | CONSULT ---
[facility] Psychiatric Consult - Data Date of interview: 07/29/18 Admission source: [facility] Identifying data: Readmission to [facility] for this 52 y/o male self- referred for detoxification treatment (alcohol,heroin,cocaine dependence) .Admitted to [address] [place] [address].Patient is ,a father of three,homeless,unemployed and supported on SSI benefits. Substance Abuse History: Confirmed by the patient in this interview.Details in current [facility] report : Smoking history: Current every day smoker. Have you smoked in the past 12 months: Yes. Aproximately how many cigarettes per day: 20. Cigars Per Day: 0. Hx Chewing Tobacco Use: No. Initiated information on smoking cessation: Yes. 'Breaking Loose' booklet given: 07/28/18. - Substance & Tx. History. Hx Alcohol Use: Yes. Hx Substance Use: Yes. Substance Use Type : Alcohol, Heroin. Hx Substance Use Treatment: Yes ([facility]). - Substances Abused. Alcohol. Route: Oral. Frequency: Daily. Amount used: liquor- 2 pints. Age of first use: 10. Date of Last Use: 07/27/18. Heroin. Route: Inhalation. Frequency: Daily. Amount used: 9 bags. Age of first use: 10. Date of Last Use: 07/28/18 Medical History: Patient endorses good general health. Psychiatric History: First contact with Psychiatry occurred in 1992 (admission to [facility] in [place] to address panic attacks + major depressive episode).Treated with imipramine at the time.Two more psychiatric hospitalizations followed ([facility] + [facility] facility in [place]).Last hospitalized in 2010.Mr Carranza sees a psychiatrist at his detention for medication management.Currently on venlafaxine ER 150 mg/ day.Patient denies history of suicide attempts. Physical/Sexual Abuse/Trauma History: Patient denies. Additional Comment: Urine Drug Screen Results: COLT-Cocaine, OPI-Opiates.Noted. Mental Status Exam - Mental Status Exam Alert and Oriented to: Time, Place, Person Cognitive Function: Good Patient Appearance: Unkempt, Disheveled Mood: Nervous, Withdrawn, Anxious Affect: Mood Congruent, Constricted Patient Behavior: Fatigued, Appropriate, Cooperative Speech Pattern: Clear, Appropriate Voice Loudness: Normal Thought Process: Intact, Goal Oriented Thought Disorder: Not Present Hallucinations: Denies Suicidal Ideation: Denies Homicidal Ideation: Denies Insight/Judgement: Poor Sleep: Poorly, Difficulty falling asleep Appetite: Good Muscle strength/Tone: Normal Gait/Station: Normal Psychiatric Findings - Problem List ([place] 1, 2,3) (1) Opioid dependence with withdrawal Current Visit: Yes Status: Acute (2) Alcohol dependence with uncomplicated withdrawal Current Visit: Yes Status: Acute (3) Cocaine dependence Current Visit: Yes Status: Acute Qualifiers: Substance use status: uncomplicated Qualified Code(s): F14.20 - Cocaine dependence, uncomplicated (4) Nicotine dependence Current Visit: Yes Status: Acute Qualifiers: Nicotine product type: cigarettes Substance use status: uncomplicated Qualified Code(s): F17.210 - Nicotine dependence, cigarettes, uncomplicated (5) Substance induced mood disorder Current Visit: Yes Status: Acute (6) MDD (major depressive disorder) Current Visit: Yes Status: Chronic Comment: As per records and self- report.On medication. (7) Insomnia Current Visit: Yes Status: Acute - Initial Treatment Plan Initial Treatment Plan: Psychoeducation.Sleep hygiene.Detoxification in progress.Effexor XR 150 mg po daily + ambien 5 mg po hs prn..Ordered.Side effects/benefits of both drugs are discussed with the patient.Consent (verbal) : given.Observation.
[2018-07-29 20:07] LABS: URINE APPEARANCE CLOUDY; URINE BILIRUBIN NEGATIVE (<2.0 mg/dL); URINE COLOR YELLOW; URINE GLUCOSE (UA) NEGATIVE (NEGATIVE); URINE KETONE NEGATIVE (NEGATIVE); URINE LEUK ESTERASE NEGATIVE (NEGATIVE); URINE NITRITE NEGATIVE (NEGATIVE); URINE PROTEIN NEGATIVE (NEGATIVE); URINE UROBILINOGEN NEGATIVE mg/dL (0.2-1.0)
[2018-07-29] MEDS: THIAMINE HCL 100 MG TABLET (FP) PO SCH (22:05)
[2018-07-29] MEDS: ZOLPIDEM TARTRATE 5 MG TABLET PO PRN (22:06)
[2018-07-30] MEDS: chlordiazePOXIDE HCL 25 MG CAPSULE PO SCH ×4 (05:34→22:11)
[2018-07-30] MEDS: VENLAFAXINE HCL 150 MG E.R. CAPSULE PO SCH (07:55)
[2018-07-30] MEDS ORDERED: METHADONE HCL 5 MG TABLET (FOR DETOX USE ONLY) PO SCH (10:00)
[2018-07-30] MEDS: PRENATAL VITAMINS W/ FOLIC ACID TABLET (FP) PO SCH (10:48)
[2018-07-30] MEDS: NICOTINE 21 MG/24 HOURS TOPICAL PATCH TD SCH (10:49)
--- NOTE | 2018-07-30 11:49 | PN ---
[facility] CIWA - CIWA Score Nausea/Vomitin-Mild Nausea/No Vomiting Muscle Tremors: None Anxiety: 0-No Anxiety, at Ease Agitation: 0-Normal Activity Paroxysmal Sweats: No Perspiration Orientation: 0-Oriented Tacttile Disturbances: 0-None Auditory Disturbances: 0-None Visual Disturbances: 0-None Headache: 0-None Present CIWA-Ar Total Score: 1 [facility] COWS - Scale Resting Pulse: 0= DE 80 or Below Sweatin= No chills or Flushing Restless Observation: 0= Sits Still Pupil Size: 0= Normal to Room Light Bone or Joint Aches: 0= None Runny Nose/ Eye Tearin= None GI Upset > 30mins: 0= None Tremor Observation of Outstretched Hands: 0= None Anxiety or Irritability: 0= None Goose Flesh Skin: 0=Smooth Skin [facility] Progress Note (SOAP) Subjective: Patient presents with mild nausea and stomach cramps. Objective: 07/30/18 11:47 Laboratory Tests 07/29/18 07/29/18 07/29/18 07:00 07:50 07:50 WBC 4.5 RBC 4.34 Hgb 14.0 Hct 41.6 MCV 95.8 MCH 32.3 MCHC 33.8 RDW 13.8 Plt Count 157 MPV 9.8 Sodium 145 Potassium 4.0 Chloride 102 Carbon Dioxide 30 Anion Gap 13 BUN 15 Creatinine 1.0 Creat Clearance w eGFR > 60 Random Glucose 111 H Calcium 8.7 Total Bilirubin 0.9 AST 40 H ALT 28 Alkaline Phosphatase 83 Total Protein 6.8 Albumin 3.6 Urine Color Urine Appearance Urine pH Ur Specific [place] Urine Protein Urine Glucose (UA) Urine Ketones Urine Blood Urine Nitrite Urine Bilirubin Urine Urobilinogen Ur Leukocyte Esterase RPR Titer HIV 1&2 Antibody Screen Negative HIV P24 Antigen Negative 07/29/18 07/29/18 07:50 17:30 WBC RBC Hgb Hct MCV MCH MCHC RDW Plt Count MPV Sodium Potassium Chloride Carbon Dioxide Anion Gap BUN Creatinine Creat Clearance w eGFR Random Glucose Calcium Total Bilirubin AST ALT Alkaline Phosphatase Total Protein Albumin Urine Color Yellow Urine Appearance Cloudy Urine pH 7.0 Ur Specific [place] 1.015 Urine Protein Negative Urine Glucose (UA) Negative Urine Ketones Negative Urine Blood Negative Urine Nitrite Negative Urine Bilirubin Negative Urine Urobilinogen Negative Ur Leukocyte Esterase Negative RPR Titer Nonreactive HIV 1&2 Antibody Screen HIV P24 Antigen Vital Signs Temperature 97.0 F L 07/30/18 09:23 Pulse Rate 54 L 07/30/18 09:23 Respiratory Rate 18 07/30/18 09:23 Blood Pressure 122/74 07/30/18 09:23 O2 Sat by Pulse Oximetry (%) alert and oriented skin warm and dry car s1s2 resp cta bl gi soft, nt, nd Assessment: 07/30/18 11:48 withdrawal syndrome Plan: continue with detox as per protocol encourage oral fluids prn
[2018-07-30] MEDS: chlordiazePOXIDE HCL 25 MG CAPSULE PO PRN (19:23)
[2018-07-30] MEDS: ZOLPIDEM TARTRATE 5 MG TABLET PO PRN (22:11)
[2018-07-30] MEDS: THIAMINE HCL 100 MG TABLET (FP) PO SCH (22:11)
[2018-07-31] MEDS: chlordiazePOXIDE 5 MG CAPSULE PO SCH ×4 (05:22→22:35)
[2018-07-31] MEDS: VENLAFAXINE HCL 150 MG E.R. CAPSULE PO SCH (08:12)
[2018-07-31] MEDS ORDERED: METHADONE HCL 5 MG TABLET (FOR DETOX USE ONLY) PO SCH (10:00)
[2018-07-31] MEDS: NICOTINE 21 MG/24 HOURS TOPICAL PATCH TD SCH (10:26)
[2018-07-31] MEDS: PRENATAL VITAMINS W/ FOLIC ACID TABLET (FP) PO SCH (10:26)
--- NOTE | 2018-07-31 12:48 | PN ---
[facility] Progress Note Note: PATIENT TOLERATING DETOX REGIMEN WELL. STATES FEELING OK AND HAS MILD STOMACH CRAMPS. DENIES NAUSEA AND VOMITING. Laboratory Tests 07/29/18 07/29/18 07/29/18 07:00 07:50 07:50 WBC 4.5 RBC 4.34 Hgb 14.0 Hct 41.6 MCV 95.8 MCH 32.3 MCHC 33.8 RDW 13.8 Plt Count 157 MPV 9.8 Sodium 145 Potassium 4.0 Chloride 102 Carbon Dioxide 30 Anion Gap 13 BUN 15 Creatinine 1.0 Creat Clearance w eGFR > 60 Random Glucose 111 H Calcium 8.7 Total Bilirubin 0.9 AST 40 H ALT 28 Alkaline Phosphatase 83 Total Protein 6.8 Albumin 3.6 Urine Color Urine Appearance Urine pH Ur Specific [place] Urine Protein Urine Glucose (UA) Urine Ketones Urine Blood Urine Nitrite Urine Bilirubin Urine Urobilinogen Ur Leukocyte Esterase RPR Titer HIV 1&2 Antibody Screen Negative HIV P24 Antigen Negative 07/29/18 07/29/18 07:50 17:30 WBC RBC Hgb Hct MCV MCH MCHC RDW Plt Count MPV Sodium Potassium Chloride Carbon Dioxide Anion Gap BUN Creatinine Creat Clearance w eGFR Random Glucose Calcium Total Bilirubin AST ALT Alkaline Phosphatase Total Protein Albumin Urine Color Yellow Urine Appearance Cloudy Urine pH 7.0 Ur Specific [place] 1.015 Urine Protein Negative Urine Glucose (UA) Negative Urine Ketones Negative Urine Blood Negative Urine Nitrite Negative Urine Bilirubin Negative Urine Urobilinogen Negative Ur Leukocyte Esterase Negative RPR Titer Nonreactive HIV 1&2 Antibody Screen HIV P24 Antigen Vital Signs Temperature 96.9 F L 07/31/18 09:21 Pulse Rate 57 L 07/31/18 09:21 Respiratory Rate 18 07/31/18 09:21 Blood Pressure 127/74 07/31/18 09:21 O2 Sat by Pulse Oximetry (%) PE: ALERT AND ORIENTED SKIN WARM AND DRY CAR S1S2 RESP CTA BL GI SOFT, BS+, NT A/P: WITHDRAWAL SYNDROME PATIENT TOLERATING DETOX WELL FOR DISCHARGE TOMORROW TO REHAB HERE AT [facility] CONTINUE TO MONITOR CLINICALLY
--- NOTE | 2018-07-31 13:52 | PN ---
[facility] Progress Note Note: Patient tolerating detox well. Patient
[2018-07-31] MEDS: chlordiazePOXIDE HCL 25 MG CAPSULE PO PRN (14:07)
[2018-07-31] MEDS: THIAMINE HCL 100 MG TABLET (FP) PO SCH (22:35)
[2018-07-31] MEDS: ZOLPIDEM TARTRATE 5 MG TABLET PO PRN (23:17)
[2018-08-01] MEDS: chlordiazePOXIDE HCL 10 MG CAPSULE PO SCH ×3 (05:25→21:32)
[2018-08-01] MEDS: METHADONE HCL 5 MG TABLET (FOR DETOX USE ONLY) PO SCH ×2 (05:25→10:36)
[2018-08-01] MEDS: VENLAFAXINE HCL 150 MG E.R. CAPSULE PO SCH (07:36)
[2018-08-01] MEDS: NICOTINE 21 MG/24 HOURS TOPICAL PATCH TD SCH (10:36)
[2018-08-01] MEDS: PRENATAL VITAMINS W/ FOLIC ACID TABLET (FP) PO SCH (10:36)
--- NOTE | 2018-08-01 12:16 | PN ---
[facility] Progress Note (SOAP) Subjective: DETOX COMPLETED. ALERT O X 3. NAD. PT REFERRED TO REHAB [facility] TODAY. Objective: 08/01/18 12:15 Vital Signs 08/01/18 08/01/18 06:16 09:54 Temperature 97.4 F L 96.5 F L Pulse Rate 53 L 57 L Respiratory 18 18 Rate Blood Pressure 128/78 130/90 Laboratory Tests 07/29/18 07/29/18 07/29/18 07:00 07:50 07:50 WBC 4.5 RBC 4.34 Hgb 14.0 Hct 41.6 MCV 95.8 MCH 32.3 MCHC 33.8 RDW 13.8 Plt Count 157 MPV 9.8 Sodium 145 Potassium 4.0 Chloride 102 Carbon Dioxide 30 Anion Gap 13 BUN 15 Creatinine 1.0 Creat Clearance w eGFR > 60 Random Glucose 111 H Calcium 8.7 Total Bilirubin 0.9 AST 40 H ALT 28 Alkaline Phosphatase 83 Total Protein 6.8 Albumin 3.6 Urine Color Urine Appearance Urine pH Ur Specific [place] Urine Protein Urine Glucose (UA) Urine Ketones Urine Blood Urine Nitrite Urine Bilirubin Urine Urobilinogen Ur Leukocyte Esterase RPR Titer HIV 1&2 Antibody Screen Negative HIV P24 Antigen Negative 07/29/18 07/29/18 07:50 17:30 WBC RBC Hgb Hct MCV MCH MCHC RDW Plt Count MPV Sodium Potassium Chloride Carbon Dioxide Anion Gap BUN Creatinine Creat Clearance w eGFR Random Glucose Calcium Total Bilirubin AST ALT Alkaline Phosphatase Total Protein Albumin Urine Color Yellow Urine Appearance Cloudy Urine pH 7.0 Ur Specific [place] 1.015 Urine Protein Negative Urine Glucose (UA) Negative Urine Ketones Negative Urine Blood Negative Urine Nitrite Negative Urine Bilirubin Negative Urine Urobilinogen Negative Ur Leukocyte Esterase Negative RPR Titer Nonreactive HIV 1&2 Antibody Screen HIV P24 Antigen Assessment: 08/01/18 12:15 MEDICALLY STABLE Plan: D/C PT TODAY TO REHAB
--- NOTE | 2018-08-01 12:17 | DS ---
[facility] Detox Discharge Summary Admission Date: 07/28/18 Discharge Date: 08/01/18 - History Present History: Alcohol Dependence, Opioid Dependence Additional Comments: DETOX COMPLETED Pertinent Past History: SEE DX BELOW - Physical Exam Results Vital Signs: Vital Signs Temperature 96.5 F L 08/01/18 09:54 Pulse Rate 57 L 08/01/18 09:54 Respiratory Rate 18 08/01/18 09:54 Blood Pressure 130/90 08/01/18 09:54 O2 Sat by Pulse Oximetry (%) Pertinent Admission Physical Exam Findings: WITHDRAWAL SX Laboratory Tests 07/29/18 07/29/18 07/29/18 07:00 07:50 07:50 WBC 4.5 RBC 4.34 Hgb 14.0 Hct 41.6 MCV 95.8 MCH 32.3 MCHC 33.8 RDW 13.8 Plt Count 157 MPV 9.8 Sodium 145 Potassium 4.0 Chloride 102 Carbon Dioxide 30 Anion Gap 13 BUN 15 Creatinine 1.0 Creat Clearance w eGFR > 60 Random Glucose 111 H Calcium 8.7 Total Bilirubin 0.9 AST 40 H ALT 28 Alkaline Phosphatase 83 Total Protein 6.8 Albumin 3.6 Urine Color Urine Appearance Urine pH Ur Specific [place] Urine Protein Urine Glucose (UA) Urine Ketones Urine Blood Urine Nitrite Urine Bilirubin Urine Urobilinogen Ur Leukocyte Esterase RPR Titer HIV 1&2 Antibody Screen Negative HIV P24 Antigen Negative 07/29/18 07/29/18 07:50 17:30 WBC RBC Hgb Hct MCV MCH MCHC RDW Plt Count MPV Sodium Potassium Chloride Carbon Dioxide Anion Gap BUN Creatinine Creat Clearance w eGFR Random Glucose Calcium Total Bilirubin AST ALT Alkaline Phosphatase Total Protein Albumin Urine Color Yellow Urine Appearance Cloudy Urine pH 7.0 Ur Specific [place] 1.015 Urine Protein Negative Urine Glucose (UA) Negative Urine Ketones Negative Urine Blood Negative Urine Nitrite Negative Urine Bilirubin Negative Urine Urobilinogen Negative Ur Leukocyte Esterase Negative RPR Titer Nonreactive HIV 1&2 Antibody Screen HIV P24 Antigen - Treatment Hospital Course: Detox Protocol Followed, Detoxed Safely, Responded well, Discharged Condition Good, Rehab Referral Accepted Patient has Accepted a Rehab Referral to: [facility] - Medication Discharge Medications: Ambulatory Orders Venlafaxine HCl ER [Effexor Xr -] 150 mg PO DAILY #30 mg 09/17/17 Venlafaxine HCl ER [Effexor Xr -] 150 mg PO DAILY #30 [id number] 07/30/18 - Diagnosis (1) Alcohol dependence with uncomplicated withdrawal Current Visit: Yes Status: Acute (2) Nicotine dependence Current Visit: Yes Status: Acute Qualifiers: Nicotine product type: cigarettes Substance use status: in withdrawal Qualified Code(s): F17.213 - Nicotine dependence, cigarettes, with withdrawal (3) Opioid dependence with withdrawal Current Visit: Yes Status: Acute - AMA Did Patient Leave Against Medical Advice: No
[2018-08-01 14:53] VITALS: BMI 29.3
--- NOTE | 2018-08-01 16:17 | HP ---
[facility] Rehab Assess/Revision - Admission History Admitted to Rehab from: [facility] Date of Admission to Rehab: 08/01/18 - Vital signs Vital Signs: Vital Signs Period Temp Pulse Resp BP Sys/Solis Pulse Ox Last 24 Hr 96.5 F-98.2 F 51-57 18-18 109-130/70-90 - Findings Detox History & Physical reviewed: Yes Concur with findings: Yes Comments/Additional Findings: detox completed today and referred to rehab. Inpatient Rehab Admission - Initial Determination Are CD services needed?: Yes Free of communicable disease: Yes Not in need of hospitalization: Yes - Rehab Admission Criteria Patient is meeting Inpatient Rehab admission criteria:: Yes
--- NOTE | 2018-08-01 21:03 | PN ---
[facility] Progress Note Note: Psychiatric nurse practitioner business solutions architect note: Chart reviewed. Dr. Leslie note read and appreciated. Will order Effexor 150mg XL and melatonin 5mg.
[2018-08-01] MEDS ORDERED: TUBERCULIN PPD 5 TU/0.1ML VIAL ID ONE (21:20)
[2018-08-01] MEDS: MELATONIN 5 MG TABLETS PO PRN (21:29)
[2018-08-01] MEDS: THIAMINE HCL 100 MG TABLET (FP) PO SCH (21:30)
[2018-08-02] MEDS: VENLAFAXINE HCL 150 MG E.R. CAPSULE PO SCH (07:18)
[2018-08-02] MEDS: PRENATAL VITAMINS W/ FOLIC ACID TABLET (FP) PO SCH (09:45)
[2018-08-02] MEDS: NICOTINE 21 MG/24 HOURS TOPICAL PATCH TD SCH (09:45)
[2018-08-02] MEDS ORDERED: METHADONE HCL 10 MG TABLET (FOR DETOX USE ONLY) PO SCH (10:00)
[2018-08-02] MEDS: METHADONE HCL 5 MG TABLET (FOR DETOX USE ONLY) PO SCH (10:28)
--- NOTE | 2018-08-02 10:48 | PN ---
[facility] Progress Note Note: Pt's methadone stopped because pt is on the Rehab floor now having completed detox regimen with methadone
[2018-08-02] MEDS: THIAMINE HCL 100 MG TABLET (FP) PO SCH (21:26)
[2018-08-02] MEDS: MELATONIN 5 MG TABLETS PO PRN (21:26)
[2018-08-03] MEDS ORDERED: METHADONE HCL 10 MG TABLET (FOR DETOX USE ONLY) PO SCH (06:00)
[2018-08-03] MEDS: VENLAFAXINE HCL 150 MG E.R. CAPSULE PO SCH (07:00)
[2018-08-03] MEDS: NICOTINE 21 MG/24 HOURS TOPICAL PATCH TD SCH (10:55)
[2018-08-03] MEDS: PRENATAL VITAMINS W/ FOLIC ACID TABLET (FP) PO SCH (10:55)
[2018-08-03] MEDS: MELATONIN 5 MG TABLETS PO PRN (21:56)
[2018-08-03] MEDS: THIAMINE HCL 100 MG TABLET (FP) PO SCH (21:56)
--- NOTE | 2018-08-04 06:11 | HP ---
Psychiatrist Admission - Data Date of interview: 08/04/18 Admission source: [facility] Identifying data: This is the third [facility] admission for this 52 years old male, father of 3 children, unemployed on SSI, homeless Medical History: Unremarkable. Smokes cigarettes 1 ppd Psychiatric History: Patient is well known to engineering technical writer from a previous admission in Aug 2017. Reports that his first psychiatric contact in 1992 when he was admitted for 2 weeks to [facility] in [place] due to panic attacks and depression. He was treated with imipramine and later switched to Paxil. He reports two subsequent psychiatric hospitalizations at [facility] and most recently in 2010 at [facility] in [place], [place]. Reports currently seeing a psychiatrist at [facility]) and he is prescribed Effexor XR 150 mg po daily. He was seen by Dr Leslie on 07/29/18 while in detox and medication was continued. Denies history of suicidal attempt. At present, reports feeling depressed and sleeping poorly Physical/Sexual Abuse/Trauma History: Denies history of physical abuse by family members as a child. Denies sexual abuse or DV relationship Additional Comment: Reports history of 3-4 previous arrests including 3 felony convictions. Denies being on parole/probation currently Vital Signs: Vital Signs - 24 hr 08/03/18 08/04/18 06:42 03:30 Temperature 97.4 F L Pulse Rate 58 L Respiratory 18 18 Rate Blood Pressure 125/83 Allergies/Adverse Reactions: Allergies Allergy/AdvReac Type Severity Reaction Status Date / Time No Known Allergies Allergy Verified 07/28/18 21:23 Date of last physical exam: 07/28/18 Concur with the findings of this exam: Yes - Substance Abuse/Tx History Hx Alcohol Use: Yes Hx Substance Use: Yes Substance Use Type: Alcohol (Started drinking alcohol at age 10, consumes 2 pints of liquor daily. Last drank on 07/27/18), Heroin (Started using heroin at age 10, consumes 9 bags daily. Last used on 07/28/18) Hx Substance Use Treatment: Yes (3 previous inpt detox &2 inpt rehab admission @ [facility]) Mental Status Exam - Mental Status Exam Alert and Oriented to: Time, Place, Person Cognitive Function: Fair Patient Appearance: Well Groomed Mood: Depressed Affect: Appropriate Patient Behavior: Cooperative Speech Pattern: Clear Voice Loudness: Normal Thought Process: Intact, Goal Oriented Thought Disorder: Not Present Hallucinations: Denies Suicidal Ideation: Denies Homicidal Ideation: Denies Insight/Judgement: Fair Sleep: Poorly Appetite: Fair Muscle strength/Tone: Normal Gait/Station: Normal Psychiatric Findings - Problem List ([place] 1, 2,3) (1) Alcohol dependence Current Visit: Yes Status: Acute (2) Opioid dependence Current Visit: Yes Status: Acute (3) Cocaine dependence Current Visit: Yes Status: Acute Qualifiers: Substance use status: uncomplicated Qualified Code(s): F14.20 - Cocaine dependence, uncomplicated (4) Nicotine dependence Current Visit: Yes Status: Chronic (5) MDD (major depressive disorder), recurrent episode Current Visit: No Status: Chronic (6) Substance induced mood disorder Current Visit: Yes Status: Acute (7) Substance-induced sleep disorder Current Visit: Yes Status: Acute - Initial Treatment Plan Initial Treatment Plan: 1) Continue Venlafaxin XR 150 mg po daily. 2) Start Melatonin 10 mg po HS prn for insomnia. 3) Monitor progress
[2018-08-04] MEDS: VENLAFAXINE HCL 150 MG E.R. CAPSULE PO SCH (07:18)
[2018-08-04] MEDS: PRENATAL VITAMINS W/ FOLIC ACID TABLET (FP) PO SCH (10:20)
[2018-08-04] MEDS: NICOTINE 21 MG/24 HOURS TOPICAL PATCH TD SCH (10:20)
[2018-08-04] MEDS: THIAMINE HCL 100 MG TABLET (FP) PO SCH (21:56)
[2018-08-04] MEDS: MELATONIN 5 MG TABLETS PO PRN (22:21)
[2018-08-05] MEDS: VENLAFAXINE HCL 150 MG E.R. CAPSULE PO SCH (07:10)
[2018-08-05] MEDS: PRENATAL VITAMINS W/ FOLIC ACID TABLET (FP) PO SCH (10:44)
[2018-08-05] MEDS: NICOTINE 21 MG/24 HOURS TOPICAL PATCH TD SCH (10:44)
[2018-08-05] MEDS: MELATONIN 5 MG TABLETS PO PRN (21:28)
[2018-08-05] MEDS: THIAMINE HCL 100 MG TABLET (FP) PO SCH (21:28)
[2018-08-06] MEDS: VENLAFAXINE HCL 150 MG E.R. CAPSULE PO SCH (07:09)
[2018-08-06] MEDS: NICOTINE 21 MG/24 HOURS TOPICAL PATCH TD SCH (10:29)
[2018-08-06] MEDS: PRENATAL VITAMINS W/ FOLIC ACID TABLET (FP) PO SCH (10:29)
[2018-08-06] MEDS: THIAMINE HCL 100 MG TABLET (FP) PO SCH (21:10)
[2018-08-06] MEDS: MELATONIN 5 MG TABLETS PO PRN (21:11)
[2018-08-07] MEDS: VENLAFAXINE HCL 150 MG E.R. CAPSULE PO SCH (08:02)
[2018-08-07] MEDS: NICOTINE 21 MG/24 HOURS TOPICAL PATCH TD SCH (10:34)
[2018-08-07] MEDS: PRENATAL VITAMINS W/ FOLIC ACID TABLET (FP) PO SCH (10:34)
[2018-08-07] MEDS: THIAMINE HCL 100 MG TABLET (FP) PO SCH (22:15)
[2018-08-08] MEDS: VENLAFAXINE HCL 150 MG E.R. CAPSULE PO SCH (07:04)
[2018-08-08] MEDS: PRENATAL VITAMINS W/ FOLIC ACID TABLET (FP) PO SCH (10:33)
[2018-08-08] MEDS: NICOTINE 21 MG/24 HOURS TOPICAL PATCH TD SCH (10:33)
[2018-08-08] MEDS: THIAMINE HCL 100 MG TABLET (FP) PO SCH (22:07)
[2018-08-09] MEDS: VENLAFAXINE HCL 150 MG E.R. CAPSULE PO SCH (07:09)
[2018-08-09] MEDS: PRENATAL VITAMINS W/ FOLIC ACID TABLET (FP) PO SCH (09:43)
[2018-08-09] MEDS: NICOTINE 21 MG/24 HOURS TOPICAL PATCH TD SCH (09:43)
[2018-08-09] MEDS: MELATONIN 5 MG TABLETS PO PRN (21:48)
[2018-08-09] MEDS: THIAMINE HCL 100 MG TABLET (FP) PO SCH (21:48)
[2018-08-10] MEDS: VENLAFAXINE HCL 150 MG E.R. CAPSULE PO SCH (08:07)
[2018-08-10] MEDS: PRENATAL VITAMINS W/ FOLIC ACID TABLET (FP) PO SCH (10:04)
[2018-08-10] MEDS: NICOTINE 21 MG/24 HOURS TOPICAL PATCH TD SCH (10:04)
[2018-08-10] MEDS: THIAMINE HCL 100 MG TABLET (FP) PO SCH (21:54)
[2018-08-10] MEDS: MELATONIN 5 MG TABLETS PO PRN (21:54)
[2018-08-11] MEDS: VENLAFAXINE HCL 150 MG E.R. CAPSULE PO SCH (07:33)
[2018-08-11] MEDS: NICOTINE 21 MG/24 HOURS TOPICAL PATCH TD SCH (09:57)
[2018-08-11] MEDS: PRENATAL VITAMINS W/ FOLIC ACID TABLET (FP) PO SCH (09:57)
[2018-08-11] MEDS: THIAMINE HCL 100 MG TABLET (FP) PO SCH (22:10)
[2018-08-11] MEDS: MELATONIN 5 MG TABLETS PO PRN (22:48)
[2018-08-12] MEDS: VENLAFAXINE HCL 150 MG E.R. CAPSULE PO SCH (07:33)
[2018-08-12] MEDS: NICOTINE 21 MG/24 HOURS TOPICAL PATCH TD SCH (10:30)
[2018-08-12] MEDS: PRENATAL VITAMINS W/ FOLIC ACID TABLET (FP) PO SCH (10:31)
--- NOTE | 2018-08-12 14:07 | PN ---
Psychiatric Progress Note Vital Signs: Vital Signs Period Temp Pulse Resp BP Sys/Solis Pulse Ox Last 24 Hr 97.9 F 54 16-16 137/93 Date of Session: 08/12/18 Chief Complaint:: Insomnia HPI: Patient addressing Alcohol, Opioid and Cocaine Dependence comorbid with Nicotine Dependence, MDD, Substance-Induced Mood Disorder and Substance-Induced Sleep Disorder Current Medications: Active Medications Generic Name Dose Route Start Last Admin Trade Name Freq PRN Reason Stop Dose Admin Acetaminophen 650 mg 07/28/18 22:03 08/11/18 12:23 Tylenol - PO 650 mg Q4H PRN Administration FEVER Al Hydroxide/Mg Hydroxide 30 ml 07/28/18 22:03 Mylanta Oral Suspension - PO Q6H PRN DYSPEPSIA Eucalyptus/Menthol/Phenol/Sorbitol 1 each 07/28/18 22:03 Cepastat Lozenge - MM Q4H PRN SORE THROAT Guaifenesin 10 ml 07/28/18 22:03 Robitussin Dm - PO Q6H PRN COUGH Ibuprofen 400 mg 07/28/18 22:03 Motrin - PO Q6H PRN PAIN LEVEL 4-6 Loperamide HCl 4 mg 07/28/18 22:03 Imodium - PO Q6H PRN DIARRHEA Magnesium Citrate 300 ml 07/28/18 22:03 Citroma - PO Q48H PRN CONSTIPATION Magnesium Hydroxide 30 ml 07/28/18 22:03 Milk Of Magnesia - PO DAILY PRN CONSTIPATION Melatonin 10 mg 08/04/18 14:10 08/11/18 22:48 Melatonin PO 10 mg HS PRN Administration INSOMNIA Nicotine 21 mg 07/29/18 10:00 08/12/18 10:30 Nicoderm Patch - TD Not Given DAILY SATURNINO Nicotine Polacrilex 2 mg 07/28/18 22:03 Nicorette Gum - BC Q2H PRN NICOTINE REPLACEMENT RX Multivit/Folic Acid/Iron 1 tab 07/29/18 10:00 08/12/18 10:31 Vitamins (Sjr) - PO Not Given DAILY SATURNINO Pseudoephedrine/Triprolidine 1 combo 07/28/18 22:03 Actifed - PO TID PRN NASAL CONGESTION Suvorexant 10 mg 08/12/18 22:00 Belsomra PO HS PRN INSOMNIA Thiamine HCl 100 mg 07/29/18 22:00 08/11/18 22:10 Vitamin B1 - PO Not Given HS SATURNINO Venlafaxine HCl 150 mg 07/30/18 08:00 08/12/18 07:33 Effexor Xr - PO 150 mg DAILY@0800 SATURNINO Administration Current Side Effect: No Lab tests ordered: Yes Lab tests reviewed: Yes Provider note:: Patient reports experiencing difficulty to fall asleep despite taking Melatonin 10 mg po HS. Discussed with patient hypnotic effects as well as Benefit vs Risk of Belsomra. He agreed to try it Total face to face time:: 15 Mental Status Exam - Mental Status Exam Alert and Oriented to: Time, Place, Person Cognitive Function: Fair Patient Appearance: Well Groomed Mood: Hopeful, Euthymic Affect: Appropriate Patient Behavior: Cooperative Speech Pattern: Clear, Artificially Ventilated Thought Process: Intact, Goal Oriented Thought Disorder: Not Present Hallucinations: Denies Suicidal Ideation: Denies Homicidal Ideation: Denies Insight/Judgement: Fair Sleep: Poorly Appetite: Good Muscle strength/Tone: Normal Gait/Station: Normal Psychiatric Treatment Plan - Problem List (1) Alcohol dependence Current Visit: Yes (2) Opioid dependence Current Visit: Yes (3) Cocaine dependence Current Visit: Yes Qualifiers: Substance use status: uncomplicated Qualified Code(s): F14.20 - Cocaine dependence, uncomplicated (4) Nicotine dependence Current Visit: Yes (5) MDD (major depressive disorder), recurrent episode Current Visit: No (6) Substance induced mood disorder Current Visit: Yes (7) Substance-induced sleep disorder Current Visit: Yes Initial treatment plan: 1) Start Belsomra 10 mg po HS prn for insomnia. 2) Monitor progress
[2018-08-12] MEDS: THIAMINE HCL 100 MG TABLET (FP) PO SCH (21:35)
[2018-08-12] MEDS: SUVOREXANT 10 MG TABLET PO PRN (21:35)
[2018-08-12] MEDS: MELATONIN 5 MG TABLETS PO PRN (21:35)
[2018-08-13] MEDS: VENLAFAXINE HCL 150 MG E.R. CAPSULE PO SCH (07:14)
[2018-08-13] MEDS: NICOTINE 21 MG/24 HOURS TOPICAL PATCH TD SCH (10:21)
[2018-08-13] MEDS: PRENATAL VITAMINS W/ FOLIC ACID TABLET (FP) PO SCH (10:21)
[2018-08-13] MEDS: MAG HYDROX/AL HYDROX/SIMETH 30 ML UNIT-DOSE CUP PO PRN (16:19)
[2018-08-13] MEDS: MELATONIN 5 MG TABLETS PO PRN (22:35)
[2018-08-13] MEDS: SUVOREXANT 10 MG TABLET PO PRN (22:35)
[2018-08-13] MEDS: THIAMINE HCL 100 MG TABLET (FP) PO SCH (22:35)
[2018-08-14] MEDS: VENLAFAXINE HCL 150 MG E.R. CAPSULE PO SCH (07:04)
[2018-08-14] MEDS: NICOTINE 21 MG/24 HOURS TOPICAL PATCH TD SCH (10:41)
[2018-08-14] MEDS: PRENATAL VITAMINS W/ FOLIC ACID TABLET (FP) PO SCH (10:41)
[2018-08-14] MEDS: MAG HYDROX/AL HYDROX/SIMETH 30 ML UNIT-DOSE CUP PO PRN (14:52)
[2018-08-14] MEDS: MELATONIN 5 MG TABLETS PO PRN (21:48)
[2018-08-14] MEDS: SUVOREXANT 10 MG TABLET PO PRN (21:48)
[2018-08-14] MEDS: THIAMINE HCL 100 MG TABLET (FP) PO SCH (21:48)
[2018-08-15] MEDS: VENLAFAXINE HCL 150 MG E.R. CAPSULE PO SCH (07:37)
[2018-08-15] MEDS: NICOTINE 21 MG/24 HOURS TOPICAL PATCH TD SCH (10:48)
[2018-08-15] MEDS: PRENATAL VITAMINS W/ FOLIC ACID TABLET (FP) PO SCH (10:48)
[2018-08-15] MEDS: THIAMINE HCL 100 MG TABLET (FP) PO SCH (21:40)
[2018-08-15] MEDS ORDERED: SUVOREXANT 10 MG TABLET PO PRN (22:00)
[2018-08-16] MEDS: VENLAFAXINE HCL 150 MG E.R. CAPSULE PO SCH (07:41)
[2018-08-16] MEDS: PRENATAL VITAMINS W/ FOLIC ACID TABLET (FP) PO SCH (10:12)
[2018-08-16] MEDS: NICOTINE 21 MG/24 HOURS TOPICAL PATCH TD SCH (10:12)
[2018-08-16] MEDS ORDERED: PT OWN MED DRAWER 7, Y5N ONE (15:14)
[2018-08-16] MEDS: THIAMINE HCL 100 MG TABLET (FP) PO SCH (22:08)
[2018-08-17] MEDS: VENLAFAXINE HCL 150 MG E.R. CAPSULE PO SCH (07:00)
[2018-08-17] MEDS: NICOTINE 21 MG/24 HOURS TOPICAL PATCH TD SCH (11:18)
[2018-08-17] MEDS: PRENATAL VITAMINS W/ FOLIC ACID TABLET (FP) PO SCH (11:18)
--- NOTE | 2018-08-17 14:40 | PN ---
Psychiatric Progress Note Vital Signs: Vital Signs Period Temp Pulse Resp BP Sys/Solis Pulse Ox Last 24 Hr 98 F 61 16-16 138/96 Date of Session: 08/17/18 Chief Complaint:: Discharge Note HPI: Patient addressing Alcohol, Opioid and Cocaine Dependence comorbid with Nicotine Dependence, MDD, recurrent episode, Substance-Induced Mood Disorder and Substance-Indiced Sleep Disorder Current Medications: Active Medications Generic Name Dose Route Start Last Admin Trade Name Freq PRN Reason Stop Dose Admin Acetaminophen 650 mg 07/28/18 22:03 08/11/18 12:23 Tylenol - PO 650 mg Q4H PRN Administration FEVER Al Hydroxide/Mg Hydroxide 30 ml 07/28/18 22:03 08/14/18 14:52 Mylanta Oral Suspension - PO 30 ml Q6H PRN Administration DYSPEPSIA Eucalyptus/Menthol/Phenol/Sorbitol 1 each 07/28/18 22:03 Cepastat Lozenge - MM Q4H PRN SORE THROAT Guaifenesin 10 ml 07/28/18 22:03 Robitussin Dm - PO Q6H PRN COUGH Ibuprofen 400 mg 07/28/18 22:03 Motrin - PO Q6H PRN PAIN LEVEL 4-6 Loperamide HCl 4 mg 07/28/18 22:03 Imodium - PO Q6H PRN DIARRHEA Magnesium Citrate 300 ml 07/28/18 22:03 Citroma - PO Q48H PRN CONSTIPATION Magnesium Hydroxide 30 ml 07/28/18 22:03 Milk Of Magnesia - PO DAILY PRN CONSTIPATION Melatonin 10 mg 08/04/18 14:10 08/14/18 21:48 Melatonin PO 10 mg HS PRN Administration INSOMNIA Nicotine 21 mg 07/29/18 10:00 08/17/18 11:18 Nicoderm Patch - TD Not Given DAILY SATURNINO Nicotine Polacrilex 2 mg 07/28/18 22:03 Nicorette Gum - BC Q2H PRN NICOTINE REPLACEMENT RX Multivit/Folic Acid/Iron 1 tab 07/29/18 10:00 08/17/18 11:18 Vitamins (Sjr) - PO Not Given DAILY SATURNINO Pseudoephedrine/Triprolidine 1 combo 07/28/18 22:03 Actifed - PO TID PRN NASAL CONGESTION Suvorexant 10 mg 08/15/18 22:00 08/15/18 21:40 Belsomra PO 08/18/18 21:59 10 mg HS PRN Administration INSOMNIA Thiamine HCl 100 mg 07/29/18 22:00 08/16/18 22:08 Vitamin B1 - PO Not Given HS SATURNINO Venlafaxine HCl 150 mg 07/30/18 08:00 08/17/18 07:00 Effexor Xr - PO 150 mg DAILY@0800 SATURNINO Administration Current Side Effect: No Lab tests ordered: Yes Lab tests reviewed: Yes Provider note:: Patient will complete this program on 08/18/18. He has met his treatment goals and will continue to address his issues in outpatient treatment at [facility]. Told newswriter that from his participation in this program, he has learned to take suggestions and make meetings. He responded well to Effexor XR 150 mg po daily. Script for that medication will be electronically transmitted to [facility] at [address] [place] [address]. He is stable for discharge on 08/18/18 Total face to face time:: 35 Mental Status Exam - Mental Status Exam Alert and Oriented to: Time, Place, Person Cognitive Function: Fair Patient Appearance: Well Groomed Mood: Hopeful, Euthymic Affect: Appropriate Patient Behavior: Cooperative Speech Pattern: Clear Voice Loudness: Normal Thought Process: Intact, Goal Oriented Thought Disorder: Not Present Hallucinations: Denies Suicidal Ideation: Denies Homicidal Ideation: Denies Insight/Judgement: Fair Sleep: Fair Appetite: Good Muscle strength/Tone: Normal Gait/Station: Normal Psychiatric Treatment Plan - Problem List (1) Alcohol dependence Current Visit: Yes (2) Opioid dependence Current Visit: Yes (3) Cocaine dependence Current Visit: Yes Qualifiers: Substance use status: uncomplicated Qualified Code(s): F14.20 - Cocaine dependence, uncomplicated (4) Nicotine dependence Current Visit: Yes (5) MDD (major depressive disorder), recurrent episode Current Visit: No (6) Substance induced mood disorder Current Visit: Yes (7) Substance-induced sleep disorder Current Visit: Yes Initial treatment plan: Patient will be discharged tomorrow and referred to [facility] for outpatient treatment
[2018-08-17] MEDS: THIAMINE HCL 100 MG TABLET (FP) PO SCH (22:34)
[2018-08-18 06:48] VITALS: BP 140/87; PULSE 53; TEMP 98.1
[2018-08-18] MEDS: VENLAFAXINE HCL 150 MG E.R. CAPSULE PO SCH (07:16)
[2018-08-18] MEDS: PRENATAL VITAMINS W/ FOLIC ACID TABLET (FP) PO SCH (10:51)
[2018-08-18] MEDS: NICOTINE 21 MG/24 HOURS TOPICAL PATCH TD SCH (10:51)
== END 2018-08-18 10:10 | disposition home or self-care (01) | DRG 895 ==
LOC: YASAS 15:12 → Y3N 21:24 → UNDODISIN 08-01 13:58 → Y3W 08-01 14:31
PROVIDERS: ATTEND Psychiatry & Neurology Psychiatry
PROC: HZ2ZZZZ Detoxification Services for Substance Abuse Treatment (ICD-10-PCS; 2018-07-28)
PROC: HZ42ZZZ Group Counseling for Substance Abuse Treatment, Cognitive-Behavioral (ICD-10-PCS; principal; 2018-08-01)
DX: F11.20 Opioid dependence, uncomplicated (principal); F14.20 Cocaine dependence, uncomplicated; F19.282 Other psychoactive substance dependence with psychoactive substance-induced sleep disorder; F33.9 Major depressive disorder, recurrent, unspecified; F10.20 Alcohol dependence, uncomplicated; F17.210 Nicotine dependence, cigarettes, uncomplicated; F19.24 Other psychoactive substance dependence with psychoactive substance-induced mood disorder; F40.01 Agoraphobia with panic disorder; G47.00 Insomnia, unspecified; Z90.89 Acquired absence of other organs
CPT/HCPCS: 36415; 80053; 81003; 85027; 86593; 87389; 93005; 93010